=== PATIENT | female | born 1990 | race Caucasian/White ===

== ENCOUNTER 2023-07-04 07:20 | Day surgery (SDC) | payer BC, SELFPAY ==
[2023-07-04] VITALS (12 sets, daily range): BP systolic 120–146; BP diastolic 79–99; PULSE 63–84; RESP 16–22; TEMP 36.4–36.7; O2SAT 99–100; BMI 36.5
--- OUTSIDE RECORDS SUMMARY | 2023-07-04 07:23 | XMS_ITS | Clinical Summary ---
Author Name Unknown Organization [employer] [facility] Address [place], [place] [address] Care Team Providers Care Relationship Manager Name Role Phone Sravani Bustamante Primary Care Provider [phone] Allergies Active Allergy Reactions Criticality Noted Date Comments Unlisted Allergen (Include Detail In Comments) *Unknown 05/04/2011 abx as a baby unsure of name Medications Medication Sig Dispensed Refills Start Date End Date Status omeprazole 20 mg tabletIndications:Ch ronic GERD,Abdominal pain, epigastric Take 1 Tablet (20 mg) by mouth once daily before a meal. 90 Tablet 0 01/14/2023 Active ondansetron (Zofran) 4 mg tabletIndications:Ch ronic GERD,Abdominal pain, epigastric Take 1 Tablet (4 mg) by mouth 3 times daily if needed for Nausea/Vomiting. 15 Tablet 0 01/14/2023 Active Ventolin HFA 90 mcg/actuation inhaler Inhale 2 Puffs by mouth every 4 hours if needed for Shortness of Breath 2nd choice. 0 05/17/2023 Active Active Problems Problem Noted Date Diagnosed Date Pap smear for cervical cancer screening 05/13/20 21 Overview: 05/2021 NIL. Plan: Pap/HPV due 05/2024 Adjustment disorder with mixed anxiety and depre ssed mood 04/25/2014 Encounters Date Type Department Care Team Description 06/29/2023 12:40 PM GAS LINE INSTALLER SUPERVISOR [facility] [address] [address] Patricia Renteria PA Derm Problem 06/29/2023 Travel 06/02/2023 4:00 PM GAS LINE INSTALLER SUPERVISOR Ancillary Procedure [facility] [address] [facility] [address] 06/02/2023 Travel 05/31/2023 3:30 PM GAS LINE INSTALLER SUPERVISOR Office Visit [facility] [address] [place] [address] Shanel Perez MD Consult (Cyst of finger) 05/31/2023 Travel 05/19/2023 1:35 PM GAS LINE INSTALLER SUPERVISOR Office Visit [facility] [address] [place] [address] Sravani Bustamante PA Physical (32 year old/Non fasting/Pain in back and neck/05/16- UC- difficulty catching breath) 05/19/2023 Travel from Last 3 Months Immunizations Name Administration Dates Next Due COVID-19 vaccine (NephroGenex 30mcg/0.3mL) LORNA Hinds 05/15/2021,04/23/2021 Tdap 06/26/2015 Family History Medical History Relation Name Comments Good Health Father prediabetes Cancer-pancreatic Mother Diabetes Paternal Grandmother No Known Problems Sister Relation Name Status Comments Father Alive Maternal Grandfather Maternal Grandmother Mother Paternal Grandfather Paternal Grandmother Sister Alive Social History Tobacco Use Types Packs/Day Years Used Date Smoking Tobacco: Never Passive Smoke Exposure: Never Smokeless Tobacco: Never Tobacco Cessation:Counseling Given: Not Answered Alcohol Use Standard Drinks/Week Comments Yes 1 (1 standard drink = 0.6 oz pur e alcohol) 3-4 days a week PHQ-2 Answer Date Recorded PHQ-2 TOTAL SCORE 2 05/19/2023 Social Connections Answer Date Recorded Frequency of Communication with Friends and Fami ly Not on file 06/16/2023 Financial Resource Strain Answer Date R ecorded Difficulty of Paying Living Expenses 3 06/15/2022 Difficulty of Paying Living Expenses Not on file 06/15/2022 Food Insecurity Answer Date Recorded Worried About Running Out of Food in the Last Ye ar 1 06/15/2022 Transportation Needs Answer Date Record ed Lack of Transportation (Medical) 1 06/15/2022 Housing Stability Answer Date Recorded Unable to Pay for Housing in the Last Year 1 06/15/2022 Sex and Gender Information Value Date Recorded Sex Assigned at Not on file Gender Identity Not on file Sexual Orientation Not on file Obstetrics History Para Term AB IAB SAB Ectopic Multiple Livin g Live Births 0 0 0 0 0 0 0 0 0 0 0 Last Filed Vital Signs Vital Sign Reading Time Taken Comments Blood Pressure 138/84 05/31/2023 3:24 PM GAS LINE INSTALLER SUPERVISOR Pulse 78 05/31/2023 3:24 PM GAS LINE INSTALLER SUPERVISOR Temperature 36.7 ??C (98.1 ??F) 01/14/2023 1 2:19 PM CDT Respiratory Rate 16 01/14/2023 12:1 9 PM CDT Oxygen Saturation 100% 05/31/2023 3:24 PM GAS LINE INSTALLER SUPERVISOR Inhaled Oxygen Concentration - - Weight 106.9 kg (235 lb 11.2 oz) 05/31/2023 3:24 PM GAS LINE INSTALLER SUPERVISOR Height 172.5 cm (5' 7.91) 05/19/2023 1:35 PM CS T Body Mass Index 35.93 05/19/2023 1:35 PM GAS LINE INSTALLER SUPERVISOR Plan of Treatment Upcoming Encounters Date Type Department Care Team (Late st Contact Info) Description 07/26/2023 1:00 PM GAS LINE INSTALLER SUPERVISOR Appointment [address] [address] Health Maintenance Due Date Last Done Comments HIV for age 15-65 11/03/2007 Hepatitis C screening for age 18-79 2010 COVID-19 vaccine series ( season) 2023 05/15/2021, 04/23/2021 Influenza for age 9-49 02/11/2023 Pap test for age 21-65 05/15/2024 05/15/2021, 2015 BMI (ht and wt on same day) for age 18+ 05/19/2024 05/19/2023, 01/14/2023, 05/15/2021, Additional history exists Depression screening for age 12+ 05/19/2024 05/19/2023, 04/23/2021, 06/26/2015 Tetanus booster 06/26/2025 06/26/2015 Tdap Completed 06/26/2015 Pneumococcal series for age 6-64 Aged Out No longer eligible based on patient's age to complete this topic Procedures Procedure Name Priority Date/Time Associated Diagnosis Comments PATH TISSUE EXAM Routine 06/29/2023 12:5 0 PM GAS LINE INSTALLER SUPERVISOR Neoplasm of uncertain behavior US PELVIS COMPLETE TA Routine 06/02/2023 4:31 PM GAS LINE INSTALLER SUPERVISOR Left ovarian cyst from Last 3 Months Results * PATH TISSUE EXAM (06/29/2023 12:50 PM GAS LINE INSTALLER SUPERVISOR) Case Report Pathology Report ?Case: [id number] ? Authorizing Provider: ??Patricia Renteria PA ? Collected: ? 06/29/2023 1250 ? Ordering Location: ? [facility] ? Received: ?06/29/2023 1307 ? Clinic ? Pathologist: ? Sophia Siddiqui MD ? Specimen: ?Skin Shave, left posterior ear ? 4 4:11 PM [facility] Final Diagnosis A) SKIN, LEFT POSTERIOR EAR, BIOPSY: Lentiginous junctional nevus with severe atypia ?? a. Margin status: POSITIVE (Peripheral and deep along follicular epithelium) ?? b. See comment 4 4:11 PM [facility] Comment A) Complete removal as clinically appropriate is recommended. Incomplete sampling of melanocytic proliferations may impair accurate diagnosis. Clinical correlation with the overall size of the lesion, and presence of remaining or recurring pigment, is required for optimal treatment. 4 4:11 PM [facility] Clinical Information rule out atypia 4:11 PM [facility] Gross Description A) Received in formalin, labeled with the patient's name and left posterior ear, is a 0.4 x 0.3 x 0.1 cm skin biopsy. There is a 0.3 x 0.2 cm flat variegated brown lesion. The specimen is inked red, bisected and entirely submitted in one cassette. EKW 06/30/2023 4:11 PM [facility] Microscopic Description The final diagnosis is based on microscopic examination of appropriate sections of all specimens. A) There is a proliferation of enlarged melanocytes predominantly arranged as solitary units and as occasional nests within the epidermis, at the dermo-epidermal junction and as occasional solitary units above it. Within the superficial dermis, there are fibroplasia, telangiectases and an inflammatory cell infiltrate with lymphocytes, histiocytes and melanophages. There is severe cytological atypia of melanocytes. Immunohistochemical stains were performed to assess the nature of the lesion with the following results: SOX10: ?Highlights melanocytes PRAME: ?Negative (approximately 50% labeling of the melanocytes by manual morphometry) The presence of red ink is confirmed on tissue sections. Support for the interpretation of this case may have included the use of immunohistochemistry and/or in situ hybridization tests that were performed by [facility] and whose performance characteristics were evaluated by pathologists from [facility]. These tests have not been cleared or approved by the U.S. Food and Drug Administration. The FDA has determined that such clearance or approval is not necessary. These tests are used for clinical purposes and should not be regarded as investigational or for research. This laboratory is certified under the Clinical Laboratory Improvement Amendments of 1988 (CLIA) as qualified to perform high complexity clinical laboratory testing. 4 4:11 PM GAS LINE INSTALLER SUPERVISOR [facility] Additional Information Interpreted at [facility] - [address], [place] [address] 4 4:11 PM GAS LINE INSTALLER SUPERVISOR [facility] Other SPECIMEN FROM SKIN / Unknown Non-Blood / Unknown 06/29/2023 12:50 PM GAS LINE INSTALLER SUPERVISOR 06/29/2023 1:07 PM GAS LINE INSTALLER SUPERVISOR Patricia RUSSO PATHOLOGY/CYTOLOGY [facility] [address] [place] [address], [place] * US PELVIS COMPLETE TA (06/02/2023 4:31 PM GAS LINE INSTALLER SUPERVISOR) Anatomical Region Laterality Modality Pelvis Ultrasound 06/08/2023 3:35 PM GAS LINE INSTALLER SUPERVISOR Impressions 06/08/2023 3:35 PM GAS LINE INSTALLER SUPERVISOR Resolution of the previously noted left ovarian cyst. Dictated by Barber Wong MD @ Jun 08 2023 ??3:35PM (Electronically Signed) ?? Narrative 06/08/2023 3:35 PM GAS LINE INSTALLER SUPERVISOR For Patients: ??As a result of the 21st Century Cures Act, medical imaging exams and procedure reports are released immediately into your electronic medical record. ??You may view this report before your referring provider. ??If you have questions, please contact your health care provider. INDICATION: Left ovarian cyst COMPARISON: CT 01/25/2023 TECHNIQUE: 2D izquierdo scale and color Doppler images were acquired of the pelvis using a transabdominal approach. FINDINGS: Sonographic images demonstrate a normal size and smooth outer contour of the uterus. Uterus measures 8.9 cm in length by 5.3 cm in AP diameter by 3.1 cm in transverse dimension. ??The myometrium has a normal uniform echotexture. The endometrial lining appears normal and measures 6 mm in composite thickness. The right ovary measures 2.9 x 1.8 x 1.5 cm in size and the left ovary measures 2.7 x 1.7 x 1.7 cm. The ovaries demonstrate normal arterial and venous blood flow on color Doppler analysis. There are no suspicious fluid collections within the cul-de-sac. Procedure Note Barber Wong MD - 06/08/2023 For Patients: As a result of the Cures Act, medical imagingexams and procedure reports are released immediately into your electronicmedical record. You may view this report before your referring provider.If you have questions, please contact your health care provider. INDICATION: Left ovarian cyst COMPARISON: CT 01/25/2023 TECHNIQUE: 2D izquierdo scale and color Doppler images were acquired of the pelvis using atransabdominal approach. FINDINGS: Sonographic images demonstrate a normal size and smooth outer contour ofthe uterus. Uterus measures 8.9 cm in length by 5.3 cm in AP diameter by3.1 cm in transverse dimension. The myometrium has a normal uniformechotexture. The endometrial lining appears normal and measures 6 mm incomposite thickness. The right ovary measures 2.9 x 1.8 x 1.5 cm in size and the left ovarymeasures 2.7 x 1.7 x 1.7 cm. The ovaries demonstrate normal arterial andvenous blood flow on color Doppler analysis. There are no suspicious fluidcollections within the cul-de-sac. IMPRESSION: Resolution of the previously noted left ovarian cyst. Dictated by Barber Wong MD @ Jun 08 2023 3:35PM (Electronically Signed) Sravani ROLDAN from Last 3 Months Care Teams Relationship Manager Relationship Specialty Start Date End Date Sravani Bustamante PA [address] [place] [address] PCP - General Physician Knot Borer 04/14/23
[2023-07-04] MEDS: ETHYL CHLORIDE 1 APPLICATION 1 APPLIC TOPICAL (08:00)
[2023-07-04] MEDS: LIDOCAINE 1% MDV 20 ML INJECTION (08:00)
[2023-07-04] MEDS: BUPIVACAINE 0.5% 30 ML INJECTION (08:00)
--- NOTE | 2023-07-04 08:13 | SUR.PREOP ---
SAME DAY SURGERY LOCAL INJECTION SITE VERIFICATION WAS PERFORMED BY SURGEON/PA AND PATIENT PRIOR TO LOCAL ANESTHETIC BEING INJECTED TO OPERATIVE SITE.
--- NOTE | 2023-07-04 10:04 | PM.ORPRC ---
Procedure Note Date of procedure: 07/04/23 Procedure: PREOPERATIVE DIAGNOSIS: 1. Left long finger ulnar-sided benign mass near the D IP joint region POSTOPERATIVE DIAGNOSIS: 1. Left long finger ulnar-sided benign mass near the D IP joint region PROCEDURE: 1. Left long finger ulnar-sided benign mass open excision SURGEON: Kevyn Garza MD. MANAGED CARE DIRECTOR: Guillermo Jeff PA-C - Of note, an account management assistant was critical for this case to aid in patient positioning, tissue retraction, limb manipulation/positioning, patient safety, & closure. ANESTHESIA: Local anesthetic (50:50 mixture of 2% lidocaine plain and 0.5% marcaine plain) EBL: 2 mL IMPLANTS: None TOURNIQUET: 15 minutes digital tourni-cot COMPLICATIONS: None evident INDICATIONS: The patient is a pleasant 32-year-old female who has experienced left long finger ulnar-sided growth with associated pain when there is pressure on the spot. The pain has progressively gotten worse. Nonoperative management has been tried but unsuccessful. Given the failure of nonoperative management, and how this affects daily life, surgery was recommended. DESCRIPTION OF PROCEDURE: Following a thorough discussion of risks, benefits, and alternatives consent was obtained and the operative extremity was marked. The patient was brought to the operating room and placed supine on the operating table. No antibiotics were administered as this was planned to be a local case only. Proper time-out was performed identifying proper patient, site, and procedure. The operative extremity was prepped and draped in the appropriate sterile fashion using ChloraPrep. The limb was exsanguinated and the tourniquet inflated. An incision was made on the ulnar side of the long finger centered over the DIP joint region along the mid axial line. Sharp incision through skin and blunt dissection to the subcutaneous tissue allowed us to see and protect the ulnar digital nerve to the long finger. The growth/mass was intimate with the dermis and felt to be fibrous. It had some fibrous extensions to the volar skin of the distal phalanx region and the surrounding skin. Also had some adhesions/fibrous connections to the deep capsular tissue. It did not have any extension to the ulnar digital nerve or artery. This was excised and sent for permanent pathology. It measured approximately 3 x 5 x 3 mm. At this stage, the tourniquet was deflated and hemostasis achieved. Closure was performed with 4-O nylon. Soft dressings were applied, and the patient was awoken/transferred to the recovery room in stable condition. PLAN: 1. Encourage elevation of the operative extremity. 2. Range of motion of the operative extremity/digits as tolerated. 3. Ibuprofen, acetaminophen and/or oxycodone as needed for pain. 4. Follow up with PA visit in 12-16 days for wound check and suture removal.
== END 2023-07-04 10:30 | disposition home or self-care (01) ==
PROVIDERS: PCP Student in an Organized Health Care Education/Training Program; Visit Provider Orthopaedic Surgery Sports Medicine
PROC: (CPT 26115; principal; 2023-07-04 09:15)
DX: L90.5 Scar conditions and fibrosis of skin (principal); R22.32 Localized swelling, mass and lump, left upper limb
CPT/HCPCS: 26115; 88305; 88341; 88342; J0665

== ENCOUNTER 2023-07-27 10:45 | Outpatient (RCR) | payer BC, SELFPAY | END 2023-11-24 23:59 | disposition home or self-care (01) | PROVIDERS: Visit Provider Student in an Organized Health Care Education/Training Program | DX: M54.6 Pain in thoracic spine (principal); G89.29 Other chronic pain; Z51.89 Encounter for other specified aftercare | CPT/HCPCS: 97110; 97140; 97162 ==

== ENCOUNTER 2024-04-12 17:36 | Day surgery (SDC) | payer BC, SELFPAY ==
[2024-04-12 17:55] VITALS: BP 147/91; PULSE 70; TEMP 35.7; O2SAT 97; BMI 38.0
--- NOTE | 2024-04-12 18:15 | CRLHL7_ITS ---
For Patients: As a result of the Century Cures Act, medical imaging exams and procedure reports are released immediately into your electronic medical record. You may view this report before your referring provider. If you have questions, please contact your health care provider. Indication: Right upper quadrant abdomen pain TECHNIQUE: Ultrasound abdomen limited. Sonographic images of the right upper quadrant were obtained using izqueirdo-scale and color Doppler images. Comparison: None FINDINGS: Gallbladder: Echogenic foci with some shadowing within the gallbladder consistent with cholelithiasis. No gallbladder wall thickening or pericholecystic fluid. Common bile duct: 8 mm. Impression: 1. Cholelithiasis without evidence of cholecystitis. 2. Mild dilation of the common duct. No choledocholithiasis seen by ultrasound. MRCP can be considered for further characterization of the common duct. Dictated by Cisco Hutchinson MD @ 04/12/2024 7:04:04 PM (Electronically Signed)
[2024-04-12 18:16] VITALS: RESP 20
--- NOTE | 2024-04-12 18:17 | ED_ITS ---
<Statement entered by Raul Paulson MD - 04/12/24 20:36> . HPI - Abdominal Pain General Date Seen: 04/12/24 Chief Complaint: Abdominal Pain Stated Complaint: stomach pain Time Seen by Provider: 04/12/24 17:38 Source: patient Mode of arrival: ambulatory Limitations: no limitations History of Present Illness HPI narrative: Patient is a 33-year-old female with no pertinent medical problems presenting to emergency department for right upper quadrant abdominal pain. She states her symptoms started 4 days ago. She states the pain seems to come and go and has noticed worsening symptoms when she eats. Has had symptoms like this in the past but they usually went away after a couple days and were not as severe. Has never been evaluated for this abdominal pain before. Has never had previous abdominal surgery. States the pain is severe at this time is a 9/10 it radiates to her mid upper back. Denies fevers or chills. Does have some mild chest pain that is in the midsternal region it started shortly prior to arrival. Unsure if it is related to her current abdominal pain or not. Denies dysuria, diarrhea, constipation. Last ate about an hour ago when a small portion as spaghetti that did increase her pain. Has vomited twice since Tuesday but most recent was this past Tuesday. Denies any history of blood clots. Is not in any current formal treatment. Denies hemoptysis recent surgeries or history of cancer. No lower extremity swelling Related Data Previous Rx's ?Medication ?Instructions ?Recorded albuterol sulfate 90 mcg/actuation 2 puff inhalation Q4-6H PRN 05/17/23 aerosol inhaler shortness of breath or wheezing #8.5 grams Allergies Allergy/AdvReac Type Severity Reaction Status Date / Time No Known Drug Allergies Allergy Verified 04/12/24 17:55 Review of Systems Status of ROS Reports: 10 or more systems reviewed and unremarkable except as noted in History and below [facility] Medical History Open fracture of distal phalanx of digit of left hand ?S62.639B - Displaced fracture of distal phalanx of unspecified finger, initial encounter for open fracture (ICD-10) Laceration of left index finger with damage to nail ?S61.311A - Laceration without foreign body of left index finger with damage to nail, initial encounter (ICD-10) Social History Smoking Status: Never smoker Do you use any of these nicotine containing products: None How often do you have a drink containing alcohol: 4 or more times a week How many standard drinks containing alcohol do you have on a typical day: 3 or 4 How often do you have six or more drinks on one occasion: Daily or almost daily AUDIT-C Alcohol total score: 9 Non-prescribed substance use: denies use Exam 2 Narrative: Exam Narrative: Const: Well-nourished, Well-developed, in moderate distress Eyes: PERRL, no conjunctival injection, and symmetrical lids HENT: Atraumatic external nose and ears. Moist mucous membranes. Neck: Symmetric, trachea midline, No thyromegaly. CVS: RRR, No murmurs or gallops. Peripheral pulses 2+ and equal in all extremities RESP: Unlabored respiratory effort. Clear to auscultation bilaterally. GI: Right upper quadrant tenderness with guarding, positive Thacker sign. No other tenderness noted to abdomen. MSK:Extremities w/o deformity, Normal Active ROM Skin: Warm, Dry. No rashes or lesions. Neuro: Normal Muscle tone, No focal neurological deficits. Psych: Awake, Alert, & Oriented x3. Appropriate mood and affect. Const: Vital Signs, click to edit/add: Vital Signs - 24 hr 04/12/24 17:55 04/12/24 18:16 Temperature 96.3 F L Pulse Rate [Pulse Oximeter] 70 Respiratory Rate 20 Blood Pressure [Ri ght Upper Arm] 147/91 H Pulse Oximetry 97 Oxygen Delivery Me thod Room Air Course Vital Signs Vital signs: Initial Vital Signs Temperature 96.3 F L 04/12/24 17:55 Temperature Source Temporal Artery Scan 04/12/24 17:55 Pulse Rate 70 04/12/24 17:55 Pulse Rhythm Regular 04/12/24 17:55 Blood Pressure 147/91 H 04/12/24 17:55 Blood Pressure Mean 109 H 04/12/24 17:55 Pulse Oximetry 97 04/12/24 17:55 Oxygen Delivery Method Room Air 04/12/24 17:55 Vital Signs Temperature 96.3 F L 04/12/24 17:55 Pulse Rate 70 04/12/24 17:55 Blood Pressure 147/91 H 04/12/24 17:55 Pulse Oximetry 97 04/12/24 17:55 Oxygen Delivery Method Room Air 04/12/24 17:55 Temperature 96.3 F L 04/12/24 17:55 Pulse Rate 70 04/12/24 17:55 Respiratory Rate 20 04/12/24 18:16 Blood Pressure 147/91 H 04/12/24 17:55 Pulse Oximetry 97 04/12/24 17:55 Oxygen Delivery Method Room Air 04/12/24 17:55 Medications Administered Medications: Discontinued Medications Generic Name Dose Route Start Last Admin Trade Name Freq PRN Reason Stop Dose Admin Morphine Sulfate 4 mg 04/12/24 18:16 04/12/24 18:34 Morphine 4 Mg/Ml Inj IVP 04/12/24 18:17 4 mg ONCE ONE Administration Ondansetron HCl 4 mg 04/12/24 18:16 04/12/24 18:34 Ondansetron 2 Mg/Ml Inj IVP 04/12/24 18:17 4 mg ONCE ONE Administration MDM - Abdominal Pain MDM Narrative Medical decision making narrative: Patient is a 33-year-old female presenting to the emergency department for abdominal pain. Pain is the right upper quadrant and appears consistent with some type of gallbladder disease. Will do an ultrasound to better evaluate the gallbladder and liver. Also order lipase, CBC, CMP. No previous abdominal surgeries in [facility] seems unlikely. Could be related to a gastric ulcer. Will hold off on further imaging until ultrasound results return. Her chest pain could be related to anxiety or radiation from her right upper quadrant pain. The differential diagnosis of chest pain is broad and includes common etiologies such as musculoskeletal strain, GERD, pneumonia, etc. More serious etiologies considered include PE, coronary artery disease, pneumothorax, aortic dissection, aortic aneurysm. Were otherwise looking stable aortic dissection aortic aneurysm seems unlikely. Will do a troponin EKG to look for signs of ACS. She is PERC negative so PE is unlikely. Morphine given for pain and Zofran for nausea. Ultrasound returned showing cholelithiasis and distended common bile duct concerning for choledocholithiasis. No clear stone seen within the common bile duct. CBC is within normal limits. Rest of BMP shows no concerning findings. LFTs are currently elevated. Baseline was compared from epic previous ALT, AST, bilirubin were 40, 25, 0.3 respectively. Currently they are 299, 201, 1.6. Lipase within normal limits. Patient is tolerating the pain right now and does not want any further pain medication. Urinalysis shows no clear signs of a UTI. It was a dirty sample though. At this point she is not appear to have cholecystitis. I spoke to our on-call general surgeon, Dr. Perez, who at this time recommends admission to the hospital here for potential cholecystectomy tomorrow an outpatient ERCP. Patient is agreeable to this plan. I spoke to the hospitalist was also agreeable for admission. Lab Data Labs: Lab Results 04/12/24 04/12/24 04/12/24 Range/Units 18:25 19:00 19:28 WBC 8.74 (4.50-11.00) K/uL RBC 5.64 H (4.00-5.20) m/uL Hgb 15.8 (12.0-16.0) gm/dL Hct 48.9 (33.0-51.0) % MCV 87 (80-100) fL MCH 28 (26-34) pg MCHC 32 (32-36) gm/dL RDW Coeff of Dharmesh 13.6 (11.5-15.5) % Plt Count 335 (140-440) K/uL Neut % (Auto) 73.7 H (42.0-72.0) % Lymph % (Auto) 16.6 L (20-44) % York % (Auto) 7.6 (0.0-11.0) % Eos % (Auto) 1.7 (0.0-7.0) % Baso % (Auto) 0.3 (0.0-3.0) % Neut # (Auto) 6.40 (1.7-7.0) K/uL Lymph # (Auto) 1.50 (0.90-2.90) K/uL [place] # (Auto) 0.70 (0.00-0.90) K/UL Eos # (Auto) 0.15 (0.00-0.50) K/uL Baso # (Auto) 0.03 (0.00-0.30) K/uL Abs Immat Gran (auto) 0.01 (0.00-0.30) K/uL Imm/Tot Granulo (auto) 0.1 % Sodium 137 (135-149) mmol/L Potassium 3.5 L (3.6-5.1) mmol/L Chloride 101 (96-114) mmol/L Carbon Dioxide 23 (20-32) mmol/L Anion Gap 13 (7-15) mEq/L BUN 12 (5-24) mg/dL Creatinine 0.9 (0.5-1.5) mg/dL Estimated Creat Clear 91.36 Estimated GFR 88 ml/min Glucose 101 (60-115) mg/dL Calcium 9.2 (8.4-10.6) mg/dL Total Bilirubin 1.6 H (0.1-1.5) mg/dL Direct Bilirubin 1.1 H (0.0-0.5) mg/dL AST 201 H (12-35) U/L ALT 299 H (4-35) U/L Alkaline Phosphatase 177 H (40-150) U/L Total Protein 8.9 H (6.0-8.3) g/dL Albumin 5.0 (3.3-5.0) g/dL Lipase 201 (23-300) U/L Urine Color Yellow (Yellow) Urine Appearance Cloudy A (Clear) Urine pH 6.0 (5.0-8.5) Ur Specific [place] >= 1.030 (1.000-1.030) Urine Protein 3+ A (Negative) Urine Glucose (UA) Negative (Negative) Urine Ketones 1+ A (Negative) Urine Blood 3+ A (Negative) Urine Nitrite Negative (Negative) Urine Bilirubin 2+ A (Negative) Urine Urobilinogen 2.0 A (0.2-1.0) Ur Leukocyte Esterase Negative (Negative) Urine RBC 5-10 A (0-2) Urine WBC 0-2 (0-5) Ur Squamous Epith Cells Many A (None-Few) Amorphous Sediment Moderate A (None) Urine Bacteria Many A (None) Urine HCG, Qual Negative (Negative) Lab Acknowledgement Test Added POC Troponin I 0.00 L (0.01-0.04) ng/ml Imaging Data US - abdomen: Attestation: I have reviewed the pertinent imaging results. Radiologist's impression: FINDINGS: Gallbladder: Echogenic foci with some shadowing within the gallbladder consistent with cholelithiasis. No gallbladder wall thickening or pericholecystic fluid. Common bile duct: 8 mm. Impression: 1. Cholelithiasis without evidence of cholecystitis. 2. Mild dilation of the common duct. No choledocholithiasis seen by ultrasound. MRCP can be considered for further characterization of the common duct. Discharge Plan Discharge Clinical Impression: Cholelithiasis Qualifiers: Cholelithiasis location: gallbladder and bile duct Cholecystitis presence: without cholecystitis Biliary obstruction: with biliary obstruction Qualified Code(s): K80.71 - Calculus of gallbladder and bile duct without cholecystitis with obstruction Patient Disposition: Admitted As Observation Condition: Stable Prescriptions: No Action albuterol sulfate 90 mcg/actuation HFA aerosol inhaler 2 puff inhalation Q4-6H PRN (Reason: shortness of breath or wheezing) Qty: 8.5 0RF Follow Up/Referrals: Sravani Bustamante PA-C [Primary Care Provider] -
[2024-04-12 18:34] LABS: Basophils Absolute Auto 0.03 K/uL (0.00-0.30); Basophils Percent Auto 0.3 % (0.0-3.0); Eosinophils Absolute Auto 0.15 K/uL (0.00-0.50); Eosinophils Percent Auto 1.7 % (0.0-7.0); Hematocrit 48.9 % (33.0-51.0); Hemoglobin* 15.8 gm/dL (12.0-16.0); Immature Granulocytes Abs Auto 0.01 K/uL (0.00-0.30); Immature Granulocytes Pct Auto 0.1 %; Lymphocytes Percent Auto 16.6 % (20-44); Mean Corpuscular HGB Conc 32 gm/dL (32-36); Mean Corpuscular Hemoglobin 28 pg (26-34); Mean Corpuscular Volume 87 fL (80-100); Monocytes Percent Auto 7.6 % (0.0-11.0); Neutrophils Percent Auto 73.7 % (42.0-72.0); Platelet Count* 335 K/uL (140-440); RDW Coefficient of Variation % 13.6 % (11.5-15.5); Red Blood Count 5.64 m/uL (4.00-5.20); White Blood Count* 8.74 K/uL (4.50-11.00)
[2024-04-12] MEDS: MORPHINE 4 MG/ML INJ IVP ×2 (18:34→22:29)
[2024-04-12] MEDS: ONDANSETRON 2 MG/ML inj 4 MG IVP (18:34)
[2024-04-12 18:42] LABS: Slide Review Reflex No
[2024-04-12 18:52] LABS: Chloride* 101 mmol/L (96-114)
[2024-04-12 18:53] LABS: Potassium* 3.5 mmol/L (3.6-5.1); Sodium* 137 mmol/L (135-149)
[2024-04-12 18:55] LABS: Anion Gap 13 mEq/L (7-15); Aspartate Amino Transferase* 201 U/L (12-35); Bilirubin Total* 1.6 mg/dL (0.1-1.5); Carbon Dioxide* 23 mmol/L (20-32); Creatinine* 0.9 mg/dL (0.5-1.5); Est. Creatinine Clearance* 91.36; Estimated Glomerular Filt Rate 88 ml/min; Total Protein* 8.9 g/dL (6.0-8.3)
[2024-04-12 18:56] LABS: Alanine Aminotransferase* 299 U/L (4-35); Alkaline Phosphatase* 177 U/L (40-150); Blood Urea Nitrogen* 12 mg/dL (5-24); Calcium* 9.2 mg/dL (8.4-10.6); Glucose* 101 mg/dL (60-115); Lipase* 201 U/L (23-300)
[2024-04-12 19:12] LABS: Appearance Urine Cloudy (Clear); Bilirubin Urine 2+ (Negative); Blood Urine 3+ (Negative); Color Urine Yellow (Yellow); Glucose Urine Negative (Negative); Ketones Urine 1+ (Negative); Leukocyte Esterase Urine Negative (Negative); Nitrite Urine Negative (Negative); Protein Urine 3+ (Negative); Specific Gravity Urine >= 1.030 (1.000-1.030)
[2024-04-12 19:13] LABS: Ur HCG Qualitative* Negative (Negative)
[2024-04-12 19:23] LABS: Amorphous Sediment Urine Moderate; Bacteria Urine Many; Squamous Epithelial Cell Urine Many (None-Few); WBC Urine 0-2 (0-5)
[2024-04-12 19:50] LABS: Bilirubin Direct* 1.1 mg/dL (0.0-0.5)
--- OUTSIDE RECORDS SUMMARY | 2024-04-12 20:03 | XMS_ITS | Clinical Summary ---
Author Organization [facility] Address [place], [place] [address] Care Team Providers Care Mesh Cutter Name Role Phone Sravani Bustamante Primary Care Provider [phone] Allergies Active Allergy Reactions Criticality Noted Date Comments Unlisted Allergen (Include Detail In Comments) *Unknown 05/04/2011 abx as a baby unsure of name Medications Medication Sig Dispensed Refills Start Date End Date Status omeprazole 20 mg tabletIndications:Ch ronic GERD,Abdominal pain, epigastric Take 1 Tablet (20 mg) by mouth once daily before a meal. 90 Tablet 01/14/2023 Active ondansetron (Zofran) 4 mg tabletIndications:Ch ronic GERD,Abdominal pain, epigastric Take 1 Tablet (4 mg) by mouth 3 times daily if needed for Nausea/Vomiting. 15 Tablet 01/14/2023 Active Ventolin HFA 90 mcg/actuation inhaler Inhale 2 Puffs by mouth every 4 hours if needed for Shortness of Breath 2nd choice. 05/17/2023 Active Active Problems Problem Noted Date Diagnosed Date Atypical mole 07/06/2023 Overview (11/22/2023): 06/29/23 - Left posterior ear - Lentiginous junctional nevus with severe atypia - excised by Dr Prather on 08/05/2023. Pap smear for cervical cancer screening 05/13/20 21 Overview (06/17/2021): 05/2021 NIL. Plan: Pap/HPV due 05/2024 Adjustment disorder with mixed anxiety and depre ssed mood 04/25/2014 Immunizations Name Administration Dates Next Due COVID-19 vaccine ([employer] 30mcg/0.3mL) LORNA Hinds 05/15/2021,04/23/2021 Tdap 06/26/2015 Family [...] Comments Blood Pressure 138/84 05/31/2023 3:24 PM ELECTRICIAN APPRENTICE Pulse 78 05/31/2023 3:24 PM ELECTRICIAN APPRENTICE Temperature 36.7 ??C (98.1 ??F) 01/14/2023 1 2:19 PM CDT Respiratory Rate 16 01/14/2023 12:1 9 PM CDT Oxygen Saturation 100% 05/31/2023 3:24 PM ELECTRICIAN APPRENTICE Inhaled Oxygen Concentration - - Weight 106.9 kg (235 lb 11.2 oz) 05/31/2023 3:24 PM ELECTRICIAN APPRENTICE Height 172.5 cm (5' 7.91) 05/19/2023 1:35 PM CS T Body Mass Index 35.93 05/19/2023 1:35 PM ELECTRICIAN APPRENTICE Plan of Treatment Upcoming Encounters Date Type Department Care Team (Late st Contact Info) Description 07/11/2024 1:00 PM ELECTRICIAN APPRENTICE Office Visit [facility] [address] [place] [address] Patricia Renteria PA [address] [place] [address] Health Maintenance Due Date Last Done Comments HIV for age 15-65 11/03/2007 Hepatitis C screening for age 18-79 2010 COVID-19 vaccine series (2023- season) 2024 05/15/2021, 04/23/2021 Influenza for age 9-49 02/12/2024 Pap test for age 21-65 05/15/2024 05/15/2021, [...] Procedure Name Priority Date/Time Associated Diagnosis Comments GEOSPATIAL DEVELOPER THIN PREP PAP SCREEN IMAGED Routine 05/15/2021 1:50 PM ELECTRICIAN APPRENTICE Screening for malignant neoplasm of cervix from Last 3 Months or Most Recently Relevant to Health Maintenance Results * GEOSPATIAL DEVELOPER THIN PREP PAP SCREEN IMAGED (05/15/2021 1:50 PM ELECTRICIAN APPRENTICE) Case Report Gynecologic Cytology Report ? Case: [id number] ? Authorizing Provider: ??Dasia Ortega PA ?Collected: ? 05/15/2021 1350 ? Ordering Location: ? [facility] ?? Received: ?05/15/2021 1444 ? Clinic ? First Screen: ?Rocky Herring ? Specimen: ?GEOSPATIAL DEVELOPER ThinPrep Vial Screening, Cervical ? 06/02/2021 10:57 AM [facility]-C ENTRAL LABORATORY INTERPRETATION/ RESULT NEGATIVE FOR INTRAEPITHELIAL LESION OR MALIGNANCY (NIL) (none) 06/02/2021 10:57 AM [facility] ENTRAL LABORATORY IMEN ADEQUACY Satisfactory for evaluation No endocervical component seen 06/02/2021 10:57 AM [facility] ENTRAL LABORATORY HPV REQUEST HPV if ASCUS 06/02/2021 10:57 AM [facility] ENTRAL LABORATORY Date of LMP 10/1/21 06/02/2021 10:57 AM ELECTRICIAN APPRENTICE [facility] ENTRAL LABORATORY Last Pap Date 06/26/15 06/02/2021 10:57 AM ELECTRICIAN APPRENTICE [facility] ENTRMS LABORATORY Last Pap Result NIL 10:57 AM ELECTRICIAN APPRENTICE [facility] ENTRAL LABORATORY Abnormal Pap or [place] Bx in last 5 years No 06/02/2021 10:57 AM ELECTRICIAN APPRENTICE [facility] Menstrual Status Irregular Periods 06/02/2021 10:57 AM ELECTRICIAN APPRENTICE [facility] [place] Bx Done Today No 06/02/2021 10:57 AM ELECTRICIAN APPRENTICE [facility] Additional Information None given 06/02/2021 10:57 AM ELECTRICIAN APPRENTICE [facility] Comment: Cytology is screened at [facility] - [address], [place] [address] and [facility] - [address] [place] [address] and [facility] - [address] [place] [address] [facility] - [address], [place] [address] Automated Review Successful 06/02/2021 10:57 AM ELECTRICIAN APPRENTICE [facility] Comment:Specimen processed s uccessfully by automated eligibility consultant device, ThinPrep Imaging System, [employer] Note The pap test is a screening technique, not a diagnostic procedure. It is used primarily to screen for squamous cancers and precursor lesions. Published studies have shown that it is subject to both false negative and false positive results. The pap test should not be used as the sole means to diagnose or exclude pre-malignant and malignant lesions. 06/02/2021 10:57 AM ELECTRICIAN APPRENTICE [facility] Other (Cervical) Non-Blood / Unknown 05/15/2021 1:50 PM ELECTRICIAN APPRENTICE 05/15/2021 2:44 PM ELECTRICIAN APPRENTICE Dasia RUSSO PATHOLOGY/CYTOLOGY [facility] [address] [place] [address], from Last 3 Months or Most Recently Relevant to Health Maintenance Care Teams Mesh Cutter Relationship Specialty Start Date End Date Sravani Bustamante PA [address] [place] [address] PCP - General Physician Senior Financial Accountant 04/14/23
--- NOTE | 2024-04-12 21:02 | PM.IMHP1 ---
Hospitalist- H&P: HPI History of Present Illness Date Seen: 04/12/24 Chief complaint: stomach pain Narrative: Lamar Maier is a 33 year old woman who presents to the emergency department for assessment of right upper quadrant abdominal pain. Onset was about 4-5 days ago. Pain worsens when she eats. Has had similar episodes in the past which have resolved spontaneously and were not as severe as this is been. No prior assessment for this pain. No prior abdominal surgery. Pain as high as 9/10 and radiates into back right shoulder blade area. No fevers, rigors, diaphoresis. Denies nausea or vomiting. Denies heartburn. Denies dyspepsia. Denies odynophagia or dysphagia. Denies constipation or diarrhea. Denies dysuria, urgency, frequency, hematuria. States menses are irregular. No recent blood loss of any sort. No chance of . 0 para 0. No recent trauma or injury. Review of Systems Status of ROS: Reports: 10 or more systems reviewed and unremarkable except as noted in History and below Narrative: Denies chest, neck, shoulder heaviness, pressure, tightness, or pain. Denies syncope or near-syncope. Denies orthostasis. Denies lightheadedness. Denies palpitations. Denies edema. Denies dyspnea at rest, paroxysmal nocturnal dyspnea, orthopnea. Has had longstanding airflow obstruction with wheezing with exertion at times. Has not required use of her bronchodilator for some time. Pulmonary function test performed on 07/26/2023 demonstrated significant bronchodilator response. Up until this past Tuesday had been consuming 3-4 beers daily. Decided to quit drinking beer at the onset of these symptoms. Has not had any alcohol withdrawal. Denies use of any other street or recreational drugs. Denies use of any nicotine products or tobacco products. Lives with her father, her sister, and her niece and nephew. 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 States business has been slow lately. Generally healthy. Follows with a inbound customer service agent due to a history of an atypical nevus in the past. [facility] Medical History (Updated 04/12/24 @ 21:18 by Raul Paulson MD) Adjustment disorder with mixed anxiety and depressed mood ?F43.23 - Adjustment disorder with mixed anxiety and depressed mood (ICD-10) Atypical nevi ?D22.9 - Melanocytic nevi, unspecified (ICD-10) Chronic airflow obstruction ?J44.9 - Chronic obstructive pulmonary disease, unspecified (ICD-10) Obesity (BMI 30-39.9) ?E66.9 - Obesity, unspecified (ICD-10) Alcohol use disorder ?F10.90 - Alcohol use, unspecified, uncomplicated (ICD-10) Open fracture of distal phalanx of digit of left hand ?S62.639B - Displaced fracture of distal phalanx of unspecified finger, initial encounter for open fracture (ICD-10) Laceration of left index finger with damage to nail ?S61.311A - Laceration without foreign body of left index finger with damage to nail, initial encounter (ICD-10) Family History Mother Pancreatic cancer Paternal Grandmother Diabetes Father Prediabetes Social History Smoking Status: Never smoker Do you use any of these nicotine containing products: None How often do you have a drink containing alcohol: 4 or more times a week How many standard drinks containing alcohol do you have on a typical day: 3 or 4 How often do you have six or more drinks on one occasion: Daily or almost daily AUDIT-C Alcohol total score: 9 Non-prescribed substance use: denies use Meds Home Medications and Allergies Allergies Allergy/AdvReac Type Severity Reaction Status Date / Time No Known Drug Allergies Allergy Verified 04/12/24 17:55 Exam Narrative: Exam Narrative: I 1st examined the patient in the emergency department and secondly I examine her when she is on the medical-surgical floor. Appears comfortable and in no acute distress. Indicates that she had a good response to the analgesics which she received while in the emergency department. Vision and hearing are normal. Friendly, articulate, cooperative. Alert and oriented x4. Lungs are entirely clear to auscultation without wheezing, rhonchi, or rales. Chest wall excursions are full. Heart tones with regular rhythm, normal S1-S2, without murmur, gallop, or rub. Abdomen is obese with active bowel sounds, soft, nontender at this time. No rebound or guarding. Is able to indicate the pain had previously been in the right upper quadrant. Extremities without edema. Moves all 4 extremities. No focal motor neurologic deficits. Skin is warm, dry, intact. No icterus, jaundice, petechiae, rashes, or ulcers. Const: Vital Signs, click to edit/add: Vital Signs - 24 hr 04/12/24 17:55 04/12/24 18:16 Temperature 96.3 F L Pulse Rate [Pulse Oximeter] 70 Respiratory Rate 20 Blood Pressure [Ri ght Upper Arm] 147/91 H Pulse Oximetry 97 Oxygen Delivery Me thod Room Air Hospitalist - H&P: Result Labs Labs: Short CBC 04/12/24 Range/Units 18:25 WBC 8.74 (4.50-11.00) K/uL Hgb 15.8 (12.0-16.0) gm/dL Hct 48.9 (33.0-51.0) % Plt Count 335 (140-440) K/uL BMP 04/12/24 18:25 Sodium 137 Potassium 3.5 L Chloride 101 Carbon Dioxide 23 BUN 12 Creatinine 0.9 Glucose 101 Calcium 9.2 Liver Function 04/12/24 Range/Units 18:25 Total Bilirubin 1.6 H (0.1-1.5) mg/dL Direct Bilirubin 1.1 H (0.0-0.5) mg/dL AST 201 H (12-35) U/L ALT 299 H (4-35) U/L Alkaline Phosphatase 177 H (40-150) U/L Albumin 5.0 (3.3-5.0) g/dL Urine 04/12/24 Range/Units 19:00 Urine Color Yellow (Yellow) Urine Appearance Cloudy A (Clear) Urine pH 6.0 (5.0-8.5) Ur Specific [place] >= 1.030 (1.000-1.030) Urine Protein 3+ A (Negative) Urine Glucose (UA) Negative (Negative) Imaging US - abdomen: Radiologist's impression: FINDINGS: Gallbladder: Echogenic foci with some shadowing within the gallbladder consistent with cholelithiasis. No gallbladder wall thickening or pericholecystic fluid. Common bile duct: 8 mm. Impression: 1. Cholelithiasis without evidence of cholecystitis. 2. Mild dilation of the common duct. No choledocholithiasis seen by ultrasound. MRCP can be considered for further characterization of the common duct. Assessment and Plan Assessment and plan (1) Cholelithiasis: Problem comment: - 04/12/2024: Symptomatic cholelithiasis. No apparent cholecystitis. Still concerned about the possibility of choledocholithiasis. - admit to observation. NPO. IV fluids. Analgesia and antiemetics as needed. General surgeon consulted. Recheck labs in the morning including liver function panel. Consider possibility of choledocholithiasis. Consider possible MRCP versus ERCP. Status: Acute (2) Alcohol use disorder: Problem comment: - ordinarily drinks 3-4 beers daily - last drink was 04/07/24 - no need for CIWA protocol monitoring and management Status: Acute (3) Chronic airflow obstruction: Problem comment: - 07/26/2023: Pulmonary Function Test demonstrates severe airflow obstruction with significant bronchodilator response and air trapping, with normal diffusion lung capacity. - Currently asymptomatic, therefore continue with albuterol metered-dose inhaler as needed Status: Acute (4) Obesity (BMI 30-39.9): Problem comment: - 04/12/24 BMI 38 Status: Acute Plan 1. Reviewed impression with patient 2. Reviewed recommendations with patient 3. Answered patient's questions to her satisfaction 4. Patient agreeable with above stated plans and recommendations Total Time Spent Total Time Spent: 65 minutes
[2024-04-12 21:06] VITALS: BP 168/97; PULSE 73; RESP 16; TEMP 37.1; O2SAT 99; BMI 38.0
[2024-04-12] MEDS: 0.9 % SODIUM CHLORIDE 1000 ml 1,000 ML 125 ML IV (22:28)
[2024-04-12] MEDS: SODIUM CHLORIDE 0.9 % (FLUSH) 10 ML SYRINGE 5 ML IVF (22:29)
[2024-04-12 23:00] VITALS: BP 133/78; PULSE 60; RESP 16; TEMP 37; O2SAT 100; O2SAT 99
[2024-04-13] VITALS (16 sets, daily range): BP systolic 102–144; BP diastolic 69–94; PULSE 58–72; RESP 14–18; TEMP 36.3–36.9; O2SAT 93–100
[2024-04-13] MEDS: 0.9 % SODIUM CHLORIDE 1000 ml 1,000 ML 125 ML IV (06:18)
[2024-04-13 06:57] LABS: Lipase* 105 U/L (23-300)
[2024-04-13 07:05] LABS: Basophils Absolute Auto 0.03 K/uL (0.00-0.30); Basophils Percent Auto 0.4 % (0.0-3.0); Eosinophils Absolute Auto 0.19 K/uL (0.00-0.50); Eosinophils Percent Auto 2.4 % (0.0-7.0); Hematocrit 43.5 % (33.0-51.0); Hemoglobin* 13.9 gm/dL (12.0-16.0); Immature Granulocytes Abs Auto 0.04 K/uL (0.00-0.30); Immature Granulocytes Pct Auto 0.5 %; Lymphocytes Absolute Auto 2.39 K/uL (0.90-2.90); Lymphocytes Percent Auto 30.1 % (20-44); Mean Corpuscular HGB Conc 32 gm/dL (32-36); Mean Corpuscular Hemoglobin 28 pg (26-34); Mean Corpuscular Volume 87 fL (80-100); Monocytes Percent Auto 7.9 % (0.0-11.0); Neutrophils Absolute Auto 4.66 K/uL (1.7-7.0); Neutrophils Percent Auto 58.7 % (42.0-72.0); Platelet Count* 307 K/uL (140-440); RDW Coefficient of Variation % 13.7 % (11.5-15.5); White Blood Count* 7.94 K/uL (4.50-11.00)
[2024-04-13 07:12] LABS: Slide Review Reflex No
[2024-04-13 07:15] LABS: Chloride* 107 mmol/L (96-114); Potassium* 3.5 mmol/L (3.6-5.1); Sodium* 137 mmol/L (135-149)
[2024-04-13 07:17] LABS: Creatinine* 0.7 mg/dL (0.5-1.5); Est. Creatinine Clearance* 117.47; Estimated Glomerular Filt Rate 119 ml/min
[2024-04-13 07:18] LABS: Alanine Aminotransferase* 229 U/L (4-35); Alkaline Phosphatase* 158 U/L (40-150); Anion Gap 7 mEq/L (7-15); Aspartate Amino Transferase* 135 U/L (12-35); Bilirubin Direct* 0.3 mg/dL (0.0-0.5); Bilirubin Total* 0.5 mg/dL (0.1-1.5); Blood Urea Nitrogen* 10 mg/dL (5-24); Carbon Dioxide* 23 mmol/L (20-32); Glucose* 85 mg/dL (60-115); Total Protein* 6.8 g/dL (6.0-8.3)
[2024-04-13 07:19] LABS: Calcium* 8.2 mg/dL (8.4-10.6)
--- NOTE | 2024-04-13 07:24 | PC.NURSE ---
Pt arrived to the floor at 2041, alert, oriented and vitally stable. Pt pain rated 5-6/10 in the RUQ radiating to the lower back. Pt states this pain increases to 9/10 in 'waves'. Pt received IVP morphine 2229, pt stated improvement. Up independently and tolerated well.
--- NOTE | 2024-04-13 09:04 | PM.GSCN ---
History of Present Illness Consult details Date Seen: 04/13/24 Consult date: 04/13/24 Narrative: It is a 33-year-old female who presents to the emergency department last evening with severe right upper quadrant pain radiating to her back. She states that she has had similar symptoms a for a few different times but this time was the worst. She states that the pain started on Tuesday around 10:00 p.m.. She had an eaten anything different for dinner. It got worse Tuesday into and was so severe that she finally came in to be seen. She does not feel that the discomfort is better since yesterday. She has had nausea and did vomit once. [facility] Medical History (Updated 04/13/24 @ 10:27 by Shanel Perez MD) Adjustment disorder with mixed anxiety and depressed mood ?F43.23 - Adjustment disorder with mixed anxiety and depressed mood (ICD-10) Atypical nevi ?D22.9 - Melanocytic nevi, unspecified (ICD-10) Chronic airflow obstruction ?J44.9 - Chronic obstructive pulmonary disease, unspecified (ICD-10) Obesity (BMI 30-39.9) ?E66.9 - Obesity, unspecified (ICD-10) Alcohol use disorder ?F10.90 - Alcohol use, unspecified, uncomplicated (ICD-10) Open fracture of distal phalanx of digit of left hand ?S62.639B - Displaced fracture of distal phalanx of unspecified finger, initial encounter for open fracture (ICD-10) Laceration of left index finger with damage to nail ?S61.311A - Laceration without foreign body of left index finger with damage to nail, initial encounter (ICD-10) Family History Mother Pancreatic cancer Paternal Grandmother Diabetes Father Prediabetes Social History Narrative: The patient does not smoke. 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 She states that she drinks ?too much and drinks 3-4 beers per day. She has never experienced withdrawal symptoms. What is your current living situation?: I presently have a place to live Problems where you live: no known problems Problems where you live details: na In the past 12 months, utilities in danger of being shut off: no In past 12 months, lack of transportation kept you from medical appts, meetings, work, or getting things needed for daily living: no In the past 12 mos, have been you worried that your food would run out before you had money to buy more?: never true In the past 12 mos, the food you bought just didn't last and you didn't have money to buy more?: never true Highest level of school completed/degree received: 12th grade, no diploma Smoking Status: Never smoker Do you use any of these nicotine containing products: None How often do you have a drink containing alcohol: 4 or more times a week Alcohol type: beer How many standard drinks containing alcohol do you have on a typical day: 3 or 4 How often do you have six or more drinks on one occasion: Daily or almost daily AUDIT-C Alcohol total score: 9 Non-prescribed substance use: denies use Caffeine: No How often does anyone, including family, friends and others, physically hurt you: never How often does anyone, including family, friends and others, insult or talk down to you: never How often does anyone, including family, friends and others, threaten you with harm: never How often does anyone, including family, friends and others, scream or curse at you: never Meds Home Medications and Allergies Allergies Allergy/AdvReac Type Severity Reaction Status Date / Time No Known Drug Allergies Allergy Verified 04/12/24 17:55 Exam Narrative: Exam Narrative: General appearance: Alert, cooperative, and in no distress Eyes: PERRLA, eye lids clear, and sclera white HENT Head: Normocephalic Ears: External ears normal Pulmonary: Breathing nonlabored on room air Cardiovascular Heart: Regular rate Extremities: warm and well perfused Gastrointestinal Abdominal: Protuberant. No scars. She is tender in the right upper quadrant. No tenderness elsewhere in her abdomen. Musculoskeletal: Extremities: Upper: Both upper extremities have normal joint range of motion and intact strength. Lower: Both lower extremities have normal joint range of motion and intact strength. Skin: Normal skin color, texture, and turgor. Neurologic: No focal deficits Psychiatric: Alert, oriented, cooperative, normal affect. Const: Vital Signs, click to edit/add: Vital Signs - 24 hr 04/12/24 17:55 04/12/24 18:16 04/12/24 21:06 Temperature 96.3 F L 98.8 F Pulse Rate [Pulse Oximeter] 70 73 Respiratory Rate 20 16 Blood Pressure [Le ft Arm] 168/97 H Blood Pressure [Ri ght Upper Arm] 147/91 H Pulse Oximetry 97 99 Oxygen Delivery Me thod Room Air Room Air 04/12/24 21:06 04/12/24 23:00 04/12/24 23:00 Temperature 98.6 F Pulse Rate [Pulse Oximeter] 60 Respiratory Rate 16 16 16 Blood Pressure [Le ft Arm] 133/78 Blood Pressure [Ri ght Upper Arm] Pulse Oximetry 99 99 100 Oxygen Delivery Me thod Room Air Room Air Room Air 04/12/24 23:00 04/13/24 08:57 Temperature 98.4 F Pulse Rate [Pulse Oximeter] 60 58 L Respiratory Rate 16 18 Blood Pressure [Le ft Arm] 144/94 H Blood Pressure [Ri ght Upper Arm] Pulse Oximetry 95 Oxygen Delivery Me thod Room Air Results Labs Labs: White blood cell count last evening and again this morning were normal. Potassium 3.5 Total bilirubin this morning is 0.5 from 1.6 Direct bilirubin 0.3 from 1.1 AST 135 from 201 ALT 229 from 299 Alkaline phosphatase is 158 from 177 Lipase is was within normal limits. Imaging Abdominal ultrasound report/results: report reviewed and image reviewed Additional studies: Abdominal ultrasound last evening: FINDINGS: Gallbladder: Echogenic foci with some shadowing within the gallbladder consistent with cholelithiasis. No gallbladder wall thickening or pericholecystic fluid. Common bile duct: 8 mm. Impression: 1. Cholelithiasis without evidence of cholecystitis. 2. Mild dilation of the common duct. No choledocholithiasis seen by ultrasound. MRCP can be considered for further characterization of the common duct. Dictated by Cisco Hutchinson MD @ 04/12/2024 7:04:04 PM Progress Note:A&P Assessment and plan (1) Obesity (BMI 30-39.9): Status: Acute (2) Alcohol use disorder: Status: Acute (3) Cholelithiasis: Status: Acute (4) Choledocholithiasis: Status: Acute Plan The patient is a 33-year-old female with cholelithiasis and likely choledocholithiasis with persistent right upper quadrant pain. I explained that the treatment for this is laparoscopic cholecystectomy. We discussed the procedure as well as risks and benefits of surgery which include bleeding, infection, bile leak, conversion to open or injury to other structures, specifically the common bile duct. We also discussed recovery. She is a [employer] and refuses blood transfusion even in the event of a life-threatening emergency. She is okay with albumin if necessary. Because of the patient's elevated liver enzymes and dilated common bile duct, I explained that there is concern for choledocholithiasis, though hopefully since liver enzymes are improved stone has passed. We discussed an intraoperative cholangiogram. They an ERCP may be necessary. She is agreeable to proceed and we will plan on surgery this morning.
--- NOTE | 2024-04-13 09:30 | CRLHL7_ITS ---
For Patients: As a result of the Century Cures Act, medical imaging exams and procedure reports are released immediately into your electronic medical record. You may view this report before your referring provider. If you have questions, please contact your health care provider. INDICATION : Laparoscopic cholecystectomy. TECHNIQUE : Intraoperative cholangiogram. Contrast injected via gallbladder neck and cystic duct. FINDINGS : Fluoroscopy time was 43.2 seconds. 3 images were obtained. IMPRESSION : Mildly distended biliary tree. No definitive filling defect on the last image. Contrast not yet in the duodenum. Dictated by Barber Wong MD @ 04/13/2024 1:51:01 PM (Electronically Signed)
[2024-04-13] MEDS: SODIUM CHLORIDE 0.9 % (FLUSH) 10 ML SYRINGE 5 ML IVF (09:41)
[2024-04-13] MEDS: MORPHINE 4 MG/ML INJ IVP (09:41)
[2024-04-13] MEDS: CEFAZOLIN 2 GM INJ IVP (10:40)
--- OUTSIDE RECORDS SUMMARY | 2024-04-13 10:43 | XMS_ITS | Clinical Summary ---
Author Organization [employer] [facility] Address [place], [place] [address] Care Team Providers Care Senior Editor Name Role Phone Sravani Bustamante Primary Care Provider [phone] Allergies Active Allergy Reactions Criticality Noted Date [...] Name Administration Dates Next Due COVID-19 vaccine ([employer] 30mcg/0.3mL) LORNA Hinds 05/15/2021,04/23/2021 Tdap 06/26/2015 Family [...] Comments Blood Pressure 138/84 05/31/2023 3:24 PM REVIEW CONSULTANT Pulse 78 05/31/2023 3:24 PM REVIEW CONSULTANT Temperature 36.7 ??C (98.1 ??F) 01/14/2023 1 2:19 PM CDT Respiratory Rate 16 01/14/2023 12:1 9 PM CDT Oxygen Saturation 100% 05/31/2023 3:24 PM REVIEW CONSULTANT Inhaled Oxygen Concentration - - Weight 106.9 kg (235 lb 11.2 oz) 05/31/2023 3:24 PM REVIEW CONSULTANT Height 172.5 cm (5' 7.91) 05/19/2023 1:35 PM CS T Body Mass Index 35.93 05/19/2023 1:35 PM REVIEW CONSULTANT Plan of Treatment Upcoming Encounters Date Type Department Care Team (Late st Contact Info) Description 07/11/2024 1:00 PM REVIEW CONSULTANT Office Visit [facility] [address] [place] [address] Patricia Renteria PA [address] [place] [address] Health Maintenance Due Date Last Done Comments [...] Procedure Name Priority Date/Time Associated Diagnosis Comments TONE ARTIST APPRENTICE THIN PREP PAP SCREEN IMAGED Routine 05/15/2021 1:50 PM REVIEW CONSULTANT Screening for malignant neoplasm of cervix from Last 3 Months or Most Recently Relevant to Health Maintenance Results * TONE ARTIST APPRENTICE THIN PREP PAP SCREEN IMAGED (05/15/2021 1:50 PM REVIEW CONSULTANT) Case Report Gynecologic Cytology Report ? Case: [id number] ? Authorizing Provider: ??Dasia Ortega PA ?Collected: ? 05/15/2021 1350 ? Ordering Location: ? [facility] ?? Received: ?05/15/2021 1444 ? Clinic ? First Screen: ?Rocky Herring ? Specimen: ?TONE ARTIST APPRENTICE ThinPrep Vial Screening, Cervical ? 06/02/2021 10:57 AM [facility] INTERPRETATION/ RESULT NEGATIVE FOR INTRAEPITHELIAL LESION OR MALIGNANCY (NIL) (none) 06/02/2021 10:57 AM [facility] IMEN ADEQUACY Satisfactory for evaluation No endocervical component seen 06/02/2021 10:57 AM [facility] HPV REQUEST HPV if ASCUS 06/02/2021 10:57 AM [facility] Date of LMP 10/1/21 06/02/2021 10:57 AM REVIEW CONSULTANT [facility] Last Pap Date 06/26/15 06/02/2021 10:57 AM REVIEW CONSULTANT [facility] Last Pap Result NIL 10:57 AM REVIEW CONSULTANT [facility] Abnormal Pap or Artesia Bx in last 5 years No 06/02/2021 10:57 AM REVIEW CONSULTANT [facility] Menstrual Status Irregular Periods 06/02/2021 10:57 AM REVIEW CONSULTANT [facility] Artesia Bx Done Today No 06/02/2021 10:57 AM REVIEW CONSULTANT [facility] Additional Information None given 06/02/2021 10:57 AM REVIEW CONSULTANT [facility] Comment: Cytology is screened at [facility] - [address], [place] [address] and [facility] - [address] [place] [address] and [facility] - [address] [place] [address] Interpreted at [facility] - [address], [place] [address] Automated Review Successful 06/02/2021 10:57 AM REVIEW CONSULTANT [facility] Comment:Specimen processed s uccessfully by automated roadability machine operator device, ThinPrep Imaging System, [employer] Note The pap test is a screening technique, not a diagnostic procedure. It is used primarily to screen for squamous cancers and precursor lesions. Published studies have shown that it is subject to both false negative and false positive results. The pap test should not be used as the sole means to diagnose or exclude pre-malignant and malignant lesions. 06/02/2021 10:57 AM REVIEW CONSULTANT [facility] Other (Cervical) Non-Blood / Unknown 05/15/2021 1:50 PM REVIEW CONSULTANT 05/15/2021 2:44 PM REVIEW CONSULTANT Dasia RUSSO PATHOLOGY/CYTOLOGY [facility] [address] [place] [address], from Last 3 Months or Most Recently Relevant to Health Maintenance Care Teams Senior Editor Relationship Specialty Start Date End Date Sravani Bustamante PA [address] [place] [address] PCP - General Physician Concrete Analyst 04/14/23
--- NOTE | 2024-04-13 10:59 | W.ANESCHARGE ---
Anesthesia Charges Start Date/Time Anesthesia Start Date: 04/13/24 Anesthesia Start Time: 10:33 Stop Date/Time Anesthesia Stop Date: 04/13/24 Anesthesia Stop Time: 12:42
[2024-04-13] MEDS: iopamidoL 50 ML VIAL INJECTION (11:40)
[2024-04-13] MEDS: 0.9% SODIUM CHL 50 ML VIAL INJECTION (11:40)
[2024-04-13] MEDS: BUPIVACAINE 0.25% 30 ML INJECTION (12:22)
--- NOTE | 2024-04-13 12:22 | PM.GSPRC ---
Operative Note Date of procedure: 04/13/24 Pre-op diagnosis: 1. Cholelithiasis 2. Concern for choledocholithiasis Post-op diagnosis: 1. Cholelithiasis 2. Choledocholithiasis Type of Procedure: 1. Laparoscopic cholecystectomy 2. Intraoperative cholangiogram Indications: The patient is a 33-year-old female who presented to the emergency department yesterday with severe right upper quadrant pain that had been going on for several days. She was found to have gallstones and a dilated common bile duct. She also had elevated total and direct bilirubin, transaminases and alkaline phosphatase. She was admitted to the hospital with plans for cholecystectomy and intraoperative cholangiogram. On the morning of surgery her liver function tests had improved and her bilirubin had returned to normal. We discussed the procedure as well as risks and benefits and she agreed to proceed. Procedure Description: After discussing the risks and benefits of the procedure, the patient signed informed consent.? The operative site was marked and the patient was brought to the operating room and placed on the operating table in supine position.? Care was taken to pad the patient's pressure points.?? The patient was then intubated by anesthesia.?? The operative site was then prepped and draped in the usual sterile fashion.? A time-out was then performed. Entrance to the abdomen was gained via a 5 mm Visiport in the left upper quadrant. The abdomen was insufflated and briefly surveyed for signs of injury. There was none. A 10 mm umbilical port was placed as well as 2 working ports along the right costal margin, all under direct vision. The patient was then placed in reverse Trendelenburg position with the right side up. The gallbladder fundus was grasped and retracted cephalad. It was mildly injected appearing. The liver was noted to be markedly enlarged which may retraction of the gallbladder somewhat difficult, however I was able to grasp the infundibulum. A combination of hook cautery and blunt dissection was used to carefully dissect out the cystic duct and artery until they could clearly be seen entering the gallbladder without any intervening structures. During the dissection there were several small branches of the cystic artery that were also clipped for hemostasis. The cystic artery was clipped with 2 clips proximally and 1 clip distally and transected with the scissors. The cystic duct was noted to be enlarged. Once it was dissected circumferentially, a ductotomy was created. A cholangiocatheter was then advanced into the duct and clamped. A saline leak test was performed. The patient was laid flat and fluoroscopy was brought into the field. Contrast was then injected and there was brisk filling of the right and left hepatic ducts as well as the common bile duct. The patient appeared to possibly have an aberrant right hepatic duct. As the contrast filled the distal common bile duct there appeared to be several filling defects. These eventually opacified, however at the ampullary there was a convexity consistent with a stone. There was no filling of the duodenum. Glucagon was administered. After waiting 5 minutes, attempts were made to flush the stone, however the stone did not pass. There continued to be a convex filling defect noted distally again likely indicating a stone. The patient was then placed back in reverse Trendelenburg position and the cholangiocatheter removed and the duct allowed to decompress. Several small stones were milked out of the cystic duct. The duct was then transected and looped with an 0 Vicryl and an 0 PDS endoloop. The gallbladder was then taken off of the liver bed and removed from the abdomen using an Endo-Catch bag. The gallbladder bed was surveyed for hemostasis which appeared adequate. A few small stones which had spilled from the gallbladder were removed from the abdomen. A small amount of bile which had spilled was suctioned from the abdomen as well. The umbilical port fascia was closed with 0 Vicryl using a Juan-Evan device. The remaining ports were then removed and the abdomen desufflated. The skin was closed with absorbable subcuticular suture. Sterile dressings were then applied. ? Instrument sponge and needle counts were correct at the end of the case. The patient was then woken and transferred to the PACU in stable condition. Findings: Gallbladder containing stones. Dilated cystic duct. No filling of the duodenum on cholangiogram. Filling defects noted distally in the common bile duct. Anesthesia: GETA Surgeon: Shanel Perez MD Estimated blood loss (mL): 10 Specimen: Gallbladder Condition: stable Disposition: PACU
[2024-04-13] MEDS: fentaNYL 100 MCG/2 ML inj 50 MCG IVP ×2 (12:43→13:01)
--- NOTE | 2024-04-13 12:43 | W.ANESCHARGE ---
Anesthesia Charges Start Date/Time Anesthesia Start Date: 04/13/24 Anesthesia Start Time: 10:33 Stop Date/Time Anesthesia Stop Date: 04/13/24 Anesthesia Stop Time: 12:42
[2024-04-13] MEDS: MEPERIDINE 25 MG/ML INJ 12.5 MG IVP (12:44)
[2024-04-13] MEDS: 0.9 % SODIUM CHLORIDE 500 ML 500 ML IV (13:10)
[2024-04-13] MEDS: HYDROmorphone 0.5 mg/0.5 ml inj IVP (13:45)
[2024-04-13] MEDS: ONDANSETRON 2 MG/ML inj IVP (15:33)
[2024-04-13] MEDS: HYDROCODONE-ACETAMIN 5-325 MG 1 TAB PO (16:00)
--- NOTE | 2024-04-13 18:37 | PC.NURSE ---
Discharge: The patient discharged with her father this evening, all wound care, diet, and lifting restrictions/ s/s were reviewed with the patient and her father. The patients pain was manageable @ 3/10 upon discharge. Steri strips CDI no drainage. All belongings were accounted for. Evelin FAIRBANKS BSN
== END 2024-04-13 16:58 | disposition home or self-care (01) ==
LOC: ED 20:02 → MEDSURG 20:51 → SS 04-13 10:41
PROVIDERS: Internal Medicine; Emergency Provider Student in an Organized Health Care Education/Training Program; PCP Student in an Organized Health Care Education/Training Program; Visit Provider Surgery
PROC: 0FT44ZZ Resection of Gallbladder, Percutaneous Endoscopic Approach (ICD-10-PCS; CPT 47563; principal; 2024-04-13 09:30)
DX: K80.64 Calculus of gallbladder and bile duct with chronic cholecystitis without obstruction (principal); R10.11 Right upper quadrant pain; E66.9 Obesity, unspecified; J44.9 Chronic obstructive pulmonary disease, unspecified; F43.23 Adjustment disorder with mixed anxiety and depressed mood; Z68.38 Body mass index [BMI] 38.0-38.9, adult; F10.90 Alcohol use, unspecified, uncomplicated
CPT/HCPCS: 47563; 00790; 36415; 74300; 76000; 76705; 80048; 80053; 80076; 81001; 81025; 82248; 83690; 84484; 85025; 87086; 88304; 94761; 99283; 99285; A9270; G0378; J0330; J0665; J0690; J1171; J1610; J2175; J2250; J2270; J2371; J2405; J2704; J2710; J3010; J3490; J7030; Q9967

== ENCOUNTER 2025-04-03 10:24 | Emergency (ER) | payer BC, SELFPAY ==
[2025-04-03 10:28] VITALS: BP 167/104; PULSE 80; RESP 18; TEMP 37.1; O2SAT 100; BMI 38.4
--- NOTE | 2025-04-03 10:43 | CRLHL7_ITS ---
For Patients: As a result of the Cures Act, medical imaging exams and procedure reports are released immediately into your electronic medical record. You may view this report before your referring provider. If you have questions, please contact your health care provider. Indication: Lower quadrant pain Technique: Ultrasound pelvis transabdominal and transvaginal for better assessment of the endometrium. Real-time sonographic images with spectral and color Doppler imaging of the ovaries were obtained. Comparison: None. Findings: Uterus: Size: 9.1 x 4.2 x 5.7 cm. Mass: No. Endometrium: Transvaginal imaging was performed to better evaluate the endometrium. Thickness: 6.5 mm. Mass or fluid collection: No. Right ovary: Size: 3.2 x 1.6 x 3.1 cm. Mass: No. Blood flow: Normal arterial and venous blood flow. Left ovary: Size: 2.3 x 3.0 x 2.7 cm. Mass: No. Blood flow: Normal arterial and venous blood flow. Cul-de-sac and adnexa: Significant free Fluid: No. Mass: No. Impression: Unremarkable pelvic ultrasound. Dictated by Kim Way MD @ 04/03/2025 11:25:09 AM (Electronically Signed)
--- NOTE | 2025-04-03 10:44 | ED.GENADULT ---
HPI - General Adult General Chief complaint: Abdominal Pain Stated complaint: L side/ovarian pain Time Seen by Provider: 04/03/25 10:35 History of Present Illness HPI narrative: Patient is a 34 white female who has a history of elevated BMI, choledocholithiasis , alcohol use disorder, presents with several-day history of left lower quadrant pain. She was started on control for polycystic ovarian syndrome within the last week and over the last couple of days has noted left lower quadrant pain. She thinks this is similar to when she had ovarian cyst in the past. The pain is not rated very highly in terms of discomfort but it is annoying to her and bothersome. She has had no vaginal bleeding or discharge. Denies . Has a history of irregular periods due to the PCO, well as increased facial hair. Related Data Home Medications ?Medication ?Instructions ?Recorded ?Confirmed norethindrone acetate 1 mg-ethinyl 1 tab PO DAILY 04/03/25 04/03/25 estradiol 20 mcg tablet Previous Rx's ?Medication ?Instructions ?Recorded albuterol sulfate 90 mcg/actuation 2 puff inhalation Q4-6H PRN 05/17/23 aerosol inhaler shortness of breath or wheezing #8.5 grams Allergies Allergy/AdvReac Type Severity Reaction Status Date / Time No Known Drug Allergies Allergy Verified 04/03/25 10:33 Review of Systems Status of ROS: Reports: 6 or more systems reviewed and unremarkable except as noted in History and below [facility] Medical History Adjustment disorder with mixed anxiety and depressed mood ?F43.23 - Adjustment disorder with mixed anxiety and depressed mood (ICD-10) Atypical nevi ?D22.9 - Melanocytic nevi, unspecified (ICD-10) Chronic airflow obstruction ?J44.9 - Chronic obstructive pulmonary disease, unspecified (ICD-10) Obesity (BMI 30-39.9) ?E66.9 - Obesity, unspecified (ICD-10) Alcohol use disorder ?F10.90 - Alcohol use, unspecified, uncomplicated (ICD-10) Open fracture of distal phalanx of digit of left hand ?S62.639B - Displaced fracture of distal phalanx of unspecified finger, initial encounter for open fracture (ICD-10) Laceration of left index finger with damage to nail ?S61.311A - Laceration without foreign body of left index finger with damage to nail, initial encounter (ICD-10) Family History Mother Pancreatic cancer Paternal Grandmother Diabetes Father Prediabetes Social History Narrative: The patient does not smoke. She works in a [employer] and [employer]. She states that she drinks ?too much and drinks 3-4 beers per day. She has never experienced withdrawal symptoms. What is your current living situation?: I presently have a place to live Problems where you live: no known problems Problems where you live details: na In the past 12 months, utilities in danger of being shut off: no In past 12 months, lack of transportation kept you from medical appts, meetings, work, or getting things needed for daily living: no In the past 12 mos, have been you worried that your food would run out before you had money to buy more?: never true In the past 12 mos, the food you bought just didn't last and you didn't have money to buy more?: never true Highest level of school completed/degree received: 12th grade, no diploma Smoking Status: Never smoker Do you use any of these nicotine containing products: None How often do you have a drink containing alcohol: 4 or more times a week Alcohol type: beer How many standard drinks containing alcohol do you have on a typical day: 3 or 4 How often do you have six or more drinks on one occasion: Daily or almost daily AUDIT-C Alcohol total score: 9 Non-prescribed substance use: denies use Caffeine: No How often does anyone, including family, friends and others, physically hurt you: never How often does anyone, including family, friends and others, insult or talk down to you: never How often does anyone, including family, friends and others, threaten you with harm: never How often does anyone, including family, friends and others, scream or curse at you: never Exam Narrative: Exam Narrative: Objective: Vital signs are within normal limits accepting blood pressure is 167/104. Alert orient x3, no scleral icterus, no facial asymmetry. Neck is supple Pulse regular Abdomen obese benign nontender with exception of some mild left lower pelvic tenderness to palpation but no rebound no peritonitis no palpable mass. Extremities are no edema Neurologic nonfocal Const: Vital Signs, click to edit/add: Vital Signs - 24 hr 04/03/25 10:28 Temperature 98.8 F Pulse Rate [Pulse Oximeter] 80 Respiratory Rate 18 Blood Pressure [Ri ght Upper Arm] 167/104 H Pulse Oximetry 100 Oxygen Delivery Me thod Room Air Course Vital Signs Vital signs: Initial Vital Signs Temperature 98.8 F 04/03/25 10:28 Temperature Source Temporal Artery Scan 04/03/25 10:28 Pulse Rate 80 04/03/25 10:28 Respiratory Rate 18 04/03/25 10:28 Blood Pressure 167/104 H 04/03/25 10:28 Blood Pressure Mean 125 H 04/03/25 10:28 Blood Pressure Position Sitting 04/03/25 10:28 Pulse Oximetry 100 04/03/25 10:28 Oxygen Delivery Method Room Air 04/03/25 10:28 Vital Signs Temperature 98.8 F 04/03/25 10:28 Pulse Rate 80 04/03/25 10:28 Respiratory Rate 18 04/03/25 10:28 Blood Pressure 167/104 H 04/03/25 10:28 Pulse Oximetry 100 04/03/25 10:28 Oxygen Delivery Method Room Air 04/03/25 10:28 Temperature 98.8 F 04/03/25 10:28 Pulse Rate 80 04/03/25 10:28 Respiratory Rate 18 04/03/25 10:28 Blood Pressure 167/104 H 04/03/25 10:28 Pulse Oximetry 100 04/03/25 10:28 Oxygen Delivery Method Room Air 04/03/25 10:28 Medical Decision Making [facility] Narrative Medical decision making narrative: 34-year-old female with a history of polycystic ovarian syndrome, recently started on a control pill within the last week now with 3-4 day history of left lower quadrant pain. Pain is similar to a cyst she has had the past. Will check a pelvic ultrasound to make sure should have torsion or a cyst. Will check a test, will check electrolytes and labs. Will check a CRP. Disposition pending findings above. Certainly could be possible that with the hormonal control pills she is taking now that she could develop a sister have other issue occurring. Will make disposition planning based on findings above Addendum: 12 noon: The patient's pelvic ultrasound looks unremarkable, good blood flow bilaterally no cysts on the left ovary. Laboratory studies show normal white count normal hemoglobin normal differential, potassium is slightly low at 3.5 otherwise electrolytes are normal, liver function tests are normal CRP is 1.5 amylase 93. Qualitative hCG is pending. If the test comes back negative patient will be discharged home rest light activity Tylenol and Aleve as needed follow up with primary care in 2-3 days not improving changes concerns worsening no evidence of ovarian cyst or torsion at this time, exam is generally benign and not real consistent with peritonitis or other intra-abdominal pathology I think observation. Given her reassuring labs to be appropriate. Lab Data Labs: Lab Results 04/03/25 Range/Units 11:25 WBC 7.90 (4.50-11.00) K/uL RBC 5.08 (4.00-5.20) m/uL Hgb 14.8 (12.0-16.0) gm/dL Hct 45.2 (33.0-51.0) % MCV 89 (80-100) fL MCH 29 (26-34) pg MCHC 33 (32-36) gm/dL RDW Coeff of Dharmesh 13.5 (11.5-15.5) % Plt Count 303 (140-440) K/uL Neut % (Auto) 69.8 (42.0-72.0) % Lymph % (Auto) 21.9 (20-44) % Hodgeman % (Auto) 6.3 (0.0-11.0) % Eos % (Auto) 1.6 (0.0-7.0) % Baso % (Auto) 0.3 (0.0-3.0) % Neut # (Auto) 5.51 (1.7-7.0) K/uL Lymph # (Auto) 1.73 (0.90-2.90) K/uL Hodgeman # (Auto) 0.50 (0.00-0.90) K/UL Eos # (Auto) 0.13 (0.00-0.50) K/uL Baso # (Auto) 0.02 (0.00-0.30) K/uL Abs Immat Gran (auto) 0.01 (0.00-0.30) K/uL Imm/Tot Granulo (auto) 0.1 % Sodium 138 (135-149) mmol/L Potassium 3.5 L (3.6-5.1) mmol/L Chloride 102 (96-114) mmol/L Carbon Dioxide 27 (20-32) mmol/L Anion Gap 9 (7-15) mEq/L BUN 10 (5-24) mg/dL Creatinine 0.8 (0.5-1.5) mg/dL Estimated Creat Clear 101.84 Estimated GFR 100 ml/min Glucose 102 (60-115) mg/dL Calcium 8.7 (8.4-10.6) mg/dL Total Bilirubin 0.4 (0.1-1.5) mg/dL Direct Bilirubin 0.2 (0.0-0.5) mg/dL AST 25 (12-35) U/L ALT 19 (4-35) U/L Alkaline Phosphatase 60 (40-150) U/L C-Reactive Protein 1.5 H (0.5-1.0) mg/dL Total Protein 7.8 (6.0-8.3) g/dL Albumin 4.3 (3.3-5.0) g/dL Amylase 93 H (18-89) U/L HCG, Qual Negative (Negative) Discharge Plan Discharge Clinical Impression: Acute left lower quadrant pain, History of polycystic ovarian syndrome Patient Disposition: Home, Self-Care Condition: Stable Additional Instructions: Light activity for several days, recommend Aleve and/or Tylenol as needed, no lifting or bending repetitively. Recheck with regular doctor in 2-3 days. Return to ED sooner for worsening pain concerns or problems. Activity Level: Light activity Discharge Diet: Regular Prescriptions: No Action albuterol sulfate 90 mcg/actuation HFA aerosol inhaler 2 puff inhalation Q4-6H PRN (Reason: shortness of breath or wheezing) Qty: 8.5 0RF norethindrone ac-eth estradiol 1-20 mg-mcg tablet 1 tab PO DAILY Follow Up/Referrals: Sravani Bustamante PA-C [Primary Care Provider, Family Practice] Stand Alone Forms: MyHealth Info Instructions
--- OUTSIDE RECORDS SUMMARY | 2025-04-03 11:25 | XMS_ITS | Clinical Summary ---
Author Organization [facility] Address [address] [place] [id number] Care Team Providers Care Filleter Name Role Phone Sravani Bustamante Primary Care Provider [phone] Allergies Active Allergy Reactions Criticality Noted Date Comments Unlisted Allergen (Include Detail In Comments) *Unknown 05/04/2011 abx as a baby unsure of name Medications Ventolin HFA 90 mcg/actuation inhalerIndicati ons:Exertional asthma (HC) Inhale 2 Puffs by mouth every 4 hours if needed for Shortness of Breath 2nd choice. 1 Each 11 5 Active norethindrone-e thinyl estradiol (LOESTRIN 07/02; JUNEL 07/02) 1-20 mg-mcg tabletIndicatio ns:PCOS (polycystic ovarian syndrome) Take 1 Tablet by mouth once daily. 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 Pap smear for cervical cancer screening 05/13/20 21 Overview (07/30/2024): 05/2021 NIL 07/2024 NIL/HPV negative Plan: Pap and HPV due 07/2029 Adjustment disorder with mixed anxiety and depre ssed mood 04/25/2014 Encounters Date Type Department Care Team Description 04/03/2025 Nurse Triage [facility] [address] [facility] [address] Sravani Bustamante PA Abdominal Pain 03/30/2025 Travel 03/22/2025 1:00 PM CDT Office Visit [facility] [place] [address] [place] [address] Sathya Rasmussen MD Follow Up (F/u left knee) 03/22/2025 Travel 03/19/2025 2:00 PM CDT Ancillary Procedure [facility] [address] [facility] [address] 03/19/2025 Travel 03/14/2025 1:30 PM CDT Office Visit [facility] [address] [place] [address] [facility] Visit 03/13/2025 Travel 03/06/2025 9:15 AM CDT Orders [place] [facility] [address] [place] [address] Lab, [facility] 03/05/2025 Travel 03/01/2025 9:00 AM CDT Office Visit [facility] [address] [facility] [place] [address] Sathya Rasmussen MD Consult (left knee) 03/01/2025 8:45 AM CDT Ancillary Procedure [facility] [address] [place] [address] 02/28/2025 1:30 PM CDT Office Visit [facility] [address] [place] [address] [facility] Visit 02/28/2025 Travel 02/26/2025 Telephone [facility] [place] [address] [place] [address] Sathya Rasmussen MD Imaging (Need x-rays) 02/25/2025 2:50 PM CDT Office Visit [facility] [address] [facility] [address] Sravani Bustamante PA Concerns (Wants labs done/Anxiety, wants therapy); Musculoskeletal Problem (Left knee pain, injury when she was 14, wants surgery to fix); Immunization/Injection 02/25/2025 Travel 02/21/2025 Travel from Last 3 Months Immunizations Immunization Administration Dates Next Due COVID-19 vaccine (Shopeando 30mcg/0.3mL) P LORNA D[place]na 05/15/2021,04/23/2021 INFLUENZA, IIV3 PF (AGE >= 6 MO) 02/25/2025 Tdap 06/26/2015 Family History Medical History Relation Name Comments Good Health Father prediabetes Cancer-pancreatic Mother Diabetes Paternal Grandmother No Known Problems Sister Relation Name Status Comments Father Alive Maternal Grandfather Maternal Grandmother Mother Paternal Grandfather Paternal Grandmother Sister Alive Social History Tobacco Use Types Packs/Day Years Used Date Smoking Tobacco: Never Passive Smoke Exposure: Never Smokeless Tobacco: Never Tobacco Cessation:Counseling Given: Yes Alcohol Use Standard Drinks/Week Comments Yes 1 (1 standard drink = 0.6 oz pur e alcohol) 3-4 beers daily, PHQ-2 Answer Date Recorded PHQ-2 TOTAL SCORE 2 03/01/2025 Social Connections Answer Date Recorded Do you often feel lonely or isolated from those around you? 0 06/28/2024 Alcohol Use Answer Date Recorded How often do you have a drink containing alcohol ? 4 02/25/2025 How many drinks containing a lcohol do you have on a typical day when you are drinking? 1 02/25/2025 How often do you have five or more drinks on one occasion? 3 02/25/2025 Financial Resource Strain Answer Date R ecorded Difficulty of Paying Living Expenses 3 06/28/2024 Difficulty of Paying Living Expenses Not on file 06/28/2024 Food Insecurity Answer Date Recorded Do you worry your food will run out before you are able to buy more? 1 06/28/2024 Transportation Needs Answer Date Record ed Does lack of transportation keep you from medica l appointments? 1 06/28/2024 Does lack of transportation keep you from work, meetings or getting things that you need? 1 06/28/2024 Housing Stability Answer Date Recorded What is your housing situation today? 1 06/28/2024 Utilities Answer Date Recorded Do you have trouble paying f or utilities (for example, heat, electricity, water, phone)? 1 06/28/2024 Comments No Sex and Gender Information Value Date Recorded Sex Assigned at Not on file Legal Sex Female 5:26 AM FORENSIC ACCOUNTANT Gender Identity Not on file Sexual Orientation Not on file Travel History Travel Start Travel End [place] 03/25/2025 03/31/2025 Obstetrics History Para Term AB IAB SAB Ectopic Multiple Livin g Live Births 0 0 0 0 0 0 0 0 0 0 0 Last Filed Vital Signs Vital Sign Reading Time Taken Comments Blood Pressure 131/86 02/25/2025 2:58 PM CDT Pulse 64 02/25/2025 2:58 PM CDT Temperature 36.9 C (98.5 F) 04/17/2024 12:50 PM FORENSIC ACCOUNTANT Respiratory Rate 18 04/17/2024 2:40 PM FORENSIC ACCOUNTANT Oxygen Saturation 99% 02/25/2025 2:58 PM CDT Inhaled Oxygen Concentration - - Weight 117.9 kg (260 lb) 02/25/2025 2:58 PM CDT Height 173.8 cm (5' 8.43) 02/25/2025 2:58 PM CD T Body Mass Index 39.04 02/25/2025 2:58 PM CDT Plan of Treatment Upcoming Encounters Date Type Department Care Team (Late st Contact Info) Description 04/04/2025 1:30 PM CDT Office Visit [facility] [address] [place] [address] Roxi Felder, [facility] [address] [place] [address] 04/29/2025 11:00 AM FORENSIC ACCOUNTANT [place] [facility] [place] [address] [place] [address] [place] [address] [place] [address] Health Maintenance Due Date Last Done Comments HIV for age 15-65 11/03/2007 Hepatitis C screening for age 18-79 2010 Hepatitis B series for 19+ (1 of 3 - 19+ 3-dose series) 11/03/2011 HPV series for age 9-45 (1 - 3-dose SCDM series) 11/03/2019 COVID-19 vaccine series ( - 2024- season) 2025 05/15/2021, 04/23/2021 Tetanus booster 06/26/2025 06/26/2015 BMI (ht and wt on same day) for age 18+ 02/25/2026 02/25/2025, 07/17/2024, 06/29/2024, Additional history exists Depression screening for age 12+ 03/01/2026 03/01/2025, 02/28/2025, 02/25/2025, Additional history exists Pap test for age 21-65 07/17/2029 , 07/17/2024, 05/15/2021, Additional history exists RSV vaccine for adults or (1 - 1-dose 75+ series) 11/03/2067 Influenza Vaccine Completed 02/25/2025 Pneumococcal series for age 6-49 Aged Out No longer eligible based on patient's age to complete this topic Procedures Procedure Name Priority Date/Time Associated Diagnosis Comments MR KNEE LEFT WO Routine 03/19/2025 2:44 PM CDT Chronic pain of left knee 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 TESTOSTERONE,TOTAL Routine 03/06/2025 9: 07 AM CDT Oligomenorrhea, unspecified type Hirsutism 17-OH PROGESTERONE LC/MS Routine 03/06/2025 9:07 AM CDT Oligomenorrhea, unspecified type Hirsutism XR KNEE WB 1 VIEW AP BILATERAL AND 3 VIEWS LEFT Routine 03/01/2025 9:00 AM CDT Chronic pain of left knee TESTOSTERONE,TOTAL Routine 02/25/2025 3: 40 PM CDT Oligomenorrhea, unspecified type Hirsutism PROLACTIN Routine 02/25/2025 3:40 PM CDT Oligomenorrhea, unspecified type FSH Routine 02/25/2025 3:40 PM CDT Oligomenorrhea, unspecified type LUTEINIZING HORMONE Routine 02/25/2025 3 :40 PM CDT Oligomenorrhea, unspecified type TSH WITH REFLEX Routine 02/25/2025 3:40 PM CDT Oligomenorrhea, unspecified type AGILE DEVELOPER THIN PREP PAP SCREEN IMAGED Routine 07/17/2024 3:51 PM FORENSIC ACCOUNTANT Screening for cervical cancer from Last 3 Months or Most Recently Relevant to Health Maintenance Results * MR KNEE LEFT WO CONTRAST (03/19/2025 2:44 PM CDT) Anatomical Region Laterality Modality KNEE L Magnetic Resonan ce 03/20/2025 10:0 3 AM CDT Impressions 03/20/2025 10:03 AM CDT 1. Chronic tear and resorption ACL. 2. Chronic tear or prior partial meniscectomy causes a blunted small appearance of the medial meniscal body. 3. Trace bland joint effusion. Dictated by Jony Jean-Baptiste MD @ 03/20/2025 10:03:40 AM (Electronically Signed) Narrative 03/20/2025 10:03 AM CDT For Patients: As a result of the Century Cures Act, medical imaging exams and procedure reports are released immediately into your electronic medical record. You may view this report before your referring provider. If you have questions, please contact your health care provider. EXAM: MRI OF THE LEFT KNEE, WITHOUT CONTRAST CLINICAL INDICATION: Chronic pain. History of ACL rupture. PRIOR SURGERY: None reported. COMPARISON PLAIN FILMS: 01 March 2025. COMPARISON CROSS-SECTIONAL IMAGING STUDIES: None available at time of interpretation. TECHNICAL: Axial, sagittal and coronal T1, PD, PD FS and T2 FS images. FINDINGS: OSSEOUS STRUCTURES: No fracture, marrow edema or marrow replacement process. JOINT SPACE AND CAPSULE: Effusion: Trace effusion. Joint Bodies: None seen. CRUCIATE LIGAMENTS: Anterior Cruciate Ligament: Absent from chronic tear and resorption. Posterior Cruciate Ligament: Normal. EXTENSOR MECHANISM: Distal Quadriceps Tendon: Normal. Patellar Tendon: Normal. Medial Patellar Retinaculum and Medial Patellofemoral Ligament: Normal. Lateral Patellar Retinaculum: Normal. Normal patellar alignment. No patella penelope. Normal trochlear depth. Normal lateral trochlear inclination. MEDIAL COLLATERAL LIGAMENT AND POSTEROMEDIAL CORNER COMPLEX: Medial Collateral Ligament: Normal. Medial Head of the Gastrocnemius and Semimembranosus Tendons: Normal. LATERAL COLLATERAL LIGAMENT COMPLEX AND POSTEROLATERAL CORNER COMPLEX: Fibular Collateral Ligament: Normal. Distal Biceps Femoris Tendon Complex: Normal. Iliotibial Band: Normal. Popliteus Tendon: Normal. Posterolateral Corner Capsule: Normal. MEDIAL COMPARTMENT: Medial Meniscus: Small blunted remnant of the body either from chronic marginal tearing or prior partial meniscectomy. No linear tear or displacement. Articular Cartilage: Articular surfaces appear smooth without focal articular cartilage defect or subchondral marrow changes. LATERAL COMPARTMENT: Lateral Meniscus: Normal size and morphology without tear. Articular Cartilage: Articular surfaces appear smooth without focal articular cartilage defect or subchondral marrow changes. PATELLOFEMORAL COMPARTMENT: Articular Cartilage: Articular surfaces appear smooth without focal articular cartilage defect or subchondral marrow changes. PERIARTICULAR SOFT TISSUES: Popliteal Cyst: Thin mostly decompressed cyst. Periarticular Cysts or Ganglia: None. Bursae: No prepatellar, superficial infrapatellar, deep infrapatellar, pes anserinus or semimembranosus/MCL bursitis. Musculature: No muscle atrophy or muscle edema. Subcutaneous and Soft Tissues: No subcutaneous or soft tissue mass, edema or fluid collection. Neurovascular Structures: Normal. Procedure Note Jony Jean-Baptiste MD - 03/20/2025 For Patients: As a result of the 21st Century Cures Act, medical imagingexams and procedure reports are released immediately into your electronicmedical record. You may view this report before your referring provider.If you have questions, please contact your health care provider. EXAM: MRI OF THE LEFT KNEE, WITHOUT CONTRAST CLINICAL INDICATION: Chronic pain. History of ACL rupture. PRIOR SURGERY: None reported. COMPARISON PLAIN FILMS: 01 March 2025. COMPARISON CROSS-SECTIONAL IMAGING STUDIES: None available at time of interpretation. TECHNICAL: Axial, sagittal and coronal T1, PD, PD FS and T2 FS images. FINDINGS: OSSEOUS STRUCTURES: No fracture, marrow edema or marrow replacement process. JOINT SPACE AND CAPSULE: Effusion: Trace effusion. Joint Bodies: None seen. CRUCIATE LIGAMENTS: Anterior Cruciate Ligament: Absent from chronic tear and resorption. Posterior Cruciate Ligament: Normal. EXTENSOR MECHANISM: Distal Quadriceps Tendon: Normal. Patellar Tendon: Normal. Medial Patellar Retinaculum and Medial Patellofemoral Ligament: Normal. Lateral Patellar Retinaculum: Normal. Normal patellar alignment. No patella penelope. Normal trochlear depth.Normal lateral trochlear inclination. MEDIAL COLLATERAL LIGAMENT AND POSTEROMEDIAL CORNER COMPLEX: Medial Collateral Ligament: Normal. Medial Head of the Gastrocnemius and Semimembranosus Tendons: Normal. LATERAL COLLATERAL LIGAMENT COMPLEX AND POSTEROLATERAL CORNER COMPLEX: Fibular Collateral Ligament: Normal. Distal Biceps Femoris Tendon Complex: Normal. Iliotibial Band: Normal. Popliteus Tendon: Normal. Posterolateral Corner Capsule: Normal. MEDIAL COMPARTMENT: Medial Meniscus: Small blunted remnant of the body either from chronicmarginal tearing or prior partial meniscectomy. No linear tear ordisplacement. Articular Cartilage: Articular surfaces appear smooth without focalarticular cartilage defect or subchondral marrow changes. LATERAL COMPARTMENT: Lateral Meniscus: Normal size and morphology without tear. Articular Cartilage: Articular surfaces appear smooth without focalarticular cartilage defect or subchondral marrow changes. PATELLOFEMORAL COMPARTMENT: Articular Cartilage: Articular surfaces appear smooth without focalarticular cartilage defect or subchondral marrow changes. PERIARTICULAR SOFT TISSUES: Popliteal Cyst: Thin mostly decompressed cyst. Periarticular Cysts or Ganglia: None. Bursae: No prepatellar, superficial infrapatellar, deep infrapatellar, pesanserinus or semimembranosus/MCL bursitis. Musculature: No muscle atrophy or muscle edema. Subcutaneous and Soft Tissues: No subcutaneous or soft tissue mass, edemaor fluid collection. Neurovascular Structures: Normal. IMPRESSION: 1. Chronic tear and resorption ACL. 2. Chronic tear or prior partial meniscectomy causes a blunted smallappearance of the medial meniscal body. 3. Trace bland joint effusion. Dictated by Jony Jean-Baptiste MD @ 03/20/2025 10:03:40 AM (Electronically Signed) us Sathya Rasmussen MD MR Final Resul t * 17-OH PROGESTERONE LC/MS (03/06/2025 9:07 AM CDT) 17 HYDROXYPROGESTERONE 250 ng/dL 10:15 PM CDT [employer] Comment: Adult Female Reference Ranges for 17-Hydroxyprogesterone: Pre-Menopausal Mid Follicular: 23-102 ng/dL Pre-Menopausal Surge: 67-349 ng/dL Pre-Menopausal Mid Luteal: 139-431 ng/dL Postmenopausal Phase: < or = 45 ng/dL : First Trimester: 78-457 ng/dL Second Trimester: 90-357 ng/dL Third Trimester: 144-578 ng/dL This test was developed and its analytical performance characteristics have been determined by [employer]. It has not been cleared or approved by the FDA. This assay has been validated pursuant to the CLIA regulations and is used for clinical purposes. Blood BLOOD SPECIMEN / Unknown [facility] / Unknown 03/06/2025 9:07 AM CDT 03/06/2025 9:07 AM CDT Sravani RUSSO SEND OUTS Final Res ult [employer] [place] [address] [address], * TESTOSTERONE,TOTAL (03/06/2025 9:07 AM CDT) Only the most recent of2 resultswithin the time period is included. TESTOSTERONE, TOTAL, MS 38 2 - 45 ng/dL 03/10/2025 2:05 PM CDT [employer] Comment: For additional information, please refer to [email or web address]/faq/TotalTestosteroneLCMSMS (This link is being provided for informational/educational purposes only.) (Note) This test was developed and its analytical performance characteristics have been determined by [employer]. It has not been cleared or approved by the FDA. This assay has been validated pursuant to the CLIA regulations and is used for clinical purposes. [facility] med fusion [address] [address],[address] [facility] [address] Oriana Francis MD, PhD Blood BLOOD SPECIMEN / Unknown [facility] / Unknown 03/06/2025 9:07 AM CDT 03/06/2025 9:07 AM CDT us Sravani Bustamante RAFAELA CHEMISTRY Final Res ult [facility] [address] [place] [address], * XR KNEE WB 1 VIEW AP BILATERAL AND 3 VIEWS LEFT (03/01/2025 9:00 AM CDT) Anatomical Region Laterality Modality KNEES, KNEE L Computed Radiogr aphy 03/01/2025 12:0 5 PM CDT Impressions 03/01/2025 12:05 PM CDT 1. No acute osseous injuries are noted. Dictated by: Noe Bahena MD @ 03/01/2025 12:05:01 (Electronically Signed) Narrative 03/01/2025 12:05 PM CDT For Patients: As a result of the Cures Act, medical imaging exams and procedure reports are released immediately into your electronic medical record. You may view this report before your referring provider. If you have questions, please contact your health care provider. INDICATION: Chronic pain of left knee TECHNIQUE: Knee radiograph 1 view bilateral, 4 views left COMPARISON: None FINDINGS: Bone: No acute fractures or aggressive bone lesions are identified. Joint: The medial, lateral, and patellofemoral compartments are unremarkable. No significant knee effusion is seen. Soft tissue: Unremarkable. No radiopaque foreign bodies are seen. Procedure Note oNe Bahena MD - 03/01/2025 For Patients: As a result of the Cures Act, medical imagingexams and procedure reports are released immediately into your electronicmedical record. You may view this report before your referring provider.If you have questions, please contact your health care provider. INDICATION: Chronic pain of left knee TECHNIQUE: Knee radiograph 1 view bilateral, 4 views left COMPARISON: None FINDINGS: Bone: No acute fractures or aggressive bone lesions are identified. Joint: The medial, lateral, and patellofemoral compartments areunremarkable. No significant knee effusion is seen. Soft tissue: Unremarkable. No radiopaque foreign bodies are seen. IMPRESSION: 1. No acute osseous injuries are noted. Dictated by: Noe Bahena MD @ 03/01/2025 12:05:01 (Electronically Signed) Sathya Rasmussen MD GENERAL IMAGING Final Resul t * TSH WITH REFLEX (02/25/2025 3:40 PM CDT) TSH W/REFLEX TO FT4 2.77 mIU/L 02/26/2025 6:56 AM CDT [facility] Comment: Reference Range > or = 20 Years 0.40-4.50 Ranges First trimester 0.26-2.66 Second trimester 0.55-2.73 Third trimester 0.43-2.91 Blood BLOOD SPECIMEN / Unknown [facility] / Unknown 02/25/2025 3:40 PM CDT 02/25/2025 3:40 PM CDT Sravani RUSSO CHEMISTRY Final Res ult Performing Organization Address [facility]/ZIP Co de Phone Number [employer] [address] [address], * LUTEINIZING HORMONE (02/25/2025 3:40 PM CDT) LH 59.3 mIU/mL 02/26/2025 6:54 AM CDT [facility] Comment: Reference Range Follicular Phase 1.9-12.5 Mid-Cycle Peak 8.7-76.3 Luteal Phase 0.5-16.9 Postmenopausal 10.0-54.7 Blood BLOOD SPECIMEN / Unknown [facility] / Unknown 02/25/2025 3:40 PM CDT 02/25/2025 3:40 PM CDT Sravani RUSSO CHEMISTRY Final Res ult [employer] [facility] [address] [place] [address], * PROLACTIN (02/25/2025 3:40 PM CDT) Pathologist [facility] PROLACTIN 17.1 ng/mL 02/26/2025 6:54 AM CDT [facility] Comment: Reference Range Females Non- 3.0-30.0 10.0-209.0 Postmenopausal 2.0-20.0 Blood BLOOD SPECIMEN / Unknown [facility] / Unknown 02/25/2025 3:40 PM CDT 02/25/2025 3:40 PM CDT Sravani RUSSO SEND OUTS Final Res ult [facility] [address] [address], * FSH (02/25/2025 3:40 PM CDT) [facility] FSH 14.4 mIU/mL 02/26/2025 6:54 AM CDT [facility] Comment: Reference Range Follicular Phase 2.5-10.2 Mid-cycle Peak 3.1-17.7 Luteal Phase 1.5- 9.1 Postmenopausal 23.0-116.3 Blood BLOOD SPECIMEN / Unknown [facility] / Unknown 02/25/2025 3:40 PM CDT 02/25/2025 3:40 PM CDT Sravani RUSSO CHEMISTRY Final Res ult [employer] [address] [address], * AGILE DEVELOPER THIN PREP PAP SCREEN IMAGED [[id number]] (07/17/2024 3:51 PM FORENSIC ACCOUNTANT) [facility] Case Report Gynecologic Cytology Report Case: [id number] Authorizing Provider: Sravani Bustamante PA Collected: 07/17/2024 1551 Ordering Location: [facility] Received: 07/17/2024 1551 Clinic First Screen: Leah Nails Specimen: AGILE DEVELOPER ThinPrep Vial Screening, Cervical 07/30/2024 1:24 PM FORENSIC ACCOUNTANT [facility] INTERPRETATION/ RESULT NEGATIVE FOR INTRAEPITHELIAL LESION OR MALIGNANCY (NIL) (none) 07/30/2024 1:24 PM FORENSIC ACCOUNTANT [facility] at 1324 FORENSIC ACCOUNTANT SPECIMEN ADEQUACY Satisfactory for evaluation No endocervical component seen 07/30/2024 1:24 PM FORENSIC ACCOUNTANT [facility] HPV REQUEST HPV and PAP 07/30/2024 1:24 PM FORENSIC ACCOUNTANT [facility] Date of LMP 06/05/24 07/30/2024 1:24 PM FORENSIC ACCOUNTANT [facility] Last Pap Date 05/15/21 07/30/2024 1:24 PM FORENSIC ACCOUNTANT [facility] Last Pap Result NIL 1:24 PM FORENSIC ACCOUNTANT [facility] Abnormal Pap or Dickens Bx in last 5 years No 07/30/2024 1:24 PM FORENSIC ACCOUNTANT [facility] Menstrual Status Regular Periods 07/30/2024 1:24 PM FORENSIC ACCOUNTANT [facility] Dickens Bx Done Today No 07/30/2024 1:24 PM FORENSIC ACCOUNTANT [facility] Additional Information None given 07/30/2024 1:24 PM FORENSIC ACCOUNTANT [facility] Comment: Cytology is screened at [facility] - [address], [place] [address] and [facility] - [address] [place] [address], [place] [address] and [facility] - [address] [place] [address] Interpreted at [facility] - [address] [place] [address] [place] [address] Automated Review Successful 07/30/2024 1:24 PM FORENSIC ACCOUNTANT [facility] Comment:Specimen processed s uccessfully by automated range technician device, ThinPrep Imaging System, [employer] ANCILLARY TESTING AGILE DEVELOPER HPV Ordered, Please see separate report 07/30/2024 1:24 PM FORENSIC ACCOUNTANT [facility] Note The pap test is a screening technique, not a diagnostic procedure. It is used primarily to screen for squamous cancers and precursor lesions. Published studies have shown that it is subject to both false negative and false positive results. The pap test should not be used as the sole means to diagnose or exclude pre-malignant and malignant lesions. 07/30/2024 1:24 PM FORENSIC ACCOUNTANT [facility] Other (Cervical) Non-Blood / Unknown 07/17/2024 3:51 PM FORENSIC ACCOUNTANT 07/17/2024 3:51 PM FORENSIC ACCOUNTANT us Sravani RUSSO PATHOLOGY/CYTOLOGY Final Result [facility] [address] [place] [address], from Last 3 Months or Most Recently Relevant to Health Maintenance Insurance [facility] Advance Directives * Full Code (Latest Code Status on File) Date Activated Date Inactivated Comments 04/17/2024 11:33 AM 04/18/2024 10:06 AM Question Answer Comments Code Status Discussion: Reviewed Preferences Care Teams Filleter Relationship Specialty Start Date End Date Sravani Bustamante PA [address] [place] [address] PCP - General Physician [employer] 04/14/23
[2025-04-03 11:32] LABS: Hematocrit* 45.2 % (33.0-51.0); Hemoglobin* 14.8 gm/dL (12.0-16.0); Immature Granulocytes Abs Auto 0.01 K/uL (0.00-0.30); Immature Granulocytes Pct Auto 0.1 %; Lymphocytes Absolute Auto 1.73 K/uL (0.90-2.90); Mean Corpuscular HGB Conc 33 gm/dL (32-36); Mean Corpuscular Hemoglobin 29 pg (26-34); Mean Corpuscular Volume 89 fL (80-100); RDW Coefficient of Variation % 13.5 % (11.5-15.5); Red Blood Count* 5.08 m/uL (4.00-5.20); White Blood Count* 7.90 K/uL (4.50-11.00)
[2025-04-03 11:35] LABS: Slide Review Reflex No
[2025-04-03 11:46] LABS: Albumin* 4.3 g/dL (3.3-5.0); Chloride* 102 mmol/L (96-114)
[2025-04-03 11:47] LABS: Potassium* 3.5 mmol/L (3.6-5.1); Sodium* 138 mmol/L (135-149)
[2025-04-03 11:49] LABS: Blood Urea Nitrogen* 10 mg/dL (5-24); Creatinine* 0.8 mg/dL (0.5-1.5); Est. Creatinine Clearance* 101.84; Estimated Glomerular Filt Rate 100 ml/min
[2025-04-03 11:50] LABS: Alanine Aminotransferase* 19 U/L (4-35); Alkaline Phosphatase* 60 U/L (40-150); Anion Gap 9 mEq/L (7-15); Aspartate Amino Transferase* 25 U/L (12-35); Bilirubin Direct* 0.2 mg/dL (0.0-0.5); Bilirubin Total* 0.4 mg/dL (0.1-1.5); Calcium* 8.7 mg/dL (8.4-10.6); Carbon Dioxide* 27 mmol/L (20-32); Glucose* 102 mg/dL (60-115); Total Protein* 7.8 g/dL (6.0-8.3)
[2025-04-03 12:13] LABS: HCG Qualitative Serum* Negative (Negative)
== END 2025-04-03 12:32 | disposition home or self-care (01) ==
PROVIDERS: Emergency Provider Family Medicine; PCP Student in an Organized Health Care Education/Training Program
DX: R10.32 Left lower quadrant pain (principal); Z87.42 Personal history of other diseases of the female genital tract
CPT/HCPCS: 36415; 76830; 76856; 80048; 80076; 82150; 84703; 85025; 86140; 93976; 99284